=== PATIENT | male | born 1945 | race Caucasian/White ===

== ENCOUNTER 2017-02-07 11:38 | Emergency (ER) | payer MEDICAID, OTHER ==
[~2017-02-07] VITALS: Wt 55.0 kg
[~2017-02-07 11:38] MED LIST: FOLI-49 PO; METF500T PO; Multivitamins/Minerals PO; Thiamine Hcl PO
[2017-02-07] MEDS ORDERED: SOD CHLORIDE 0.9% 1,000 ML IV STA (13:20)
[2017-02-07] MEDS ORDERED: MUPIROCIN 2% 22 GM OINT TOP ONE (13:30)
[2017-02-07] MEDS ORDERED: IBUPROFEN 600 MG TAB PO ONE (13:30)
[2017-02-07 13:41] LABS: ADD SCAN DIFF NO
[2017-02-07 13:42] LABS: BASOPHIL # 0.1 10^3/ul (0.0-0.1); BASOPHILS % 0.6 % (0.0-2.0); EOSINOPHILS # 0.1 10^3/ul (0.0-0.5); HEMATOCRIT 39.9 % (42.0-52.0); HEMOGLOBIN 13.6 g/dl (14.0-18.0); LYMPHOCYTES # 1.4 10^3/ul (0.8-2.9); LYMPHOCYTES % 17.2 % (15.0-51.0); MEAN CORPUSCULAR HEMOGLOBIN 29.9 pg (29.0-33.0); MEAN CORPUSCULAR HGB CONC 34.1 g/dl (32.0-37.0); MEAN CORPUSCULAR VOLUME 87.7 fl (82.0-101.0); MEAN PLATELET VOLUME 8.5 fl (7.4-10.4); MONOCYTE # 1.1 10^3/ul (0.3-0.9); MONOCYTES % 13.1 % (0.0-11.0); NEUTROPHIL # 5.4 10^3/ul (1.6-7.5); NEUTROPHILS % 65.7 % (39.0-77.0); PLATELET COUNT 347 10^3/UL (140-415); RED BLOOD COUNT 4.55 10^6/ul (4.70-6.10); RED CELL DISTRIBUTION WIDTH 14.3 % (11.5-14.5); WHITE BLOOD COUNT 8.3 10^3/ul (4.8-10.8)
--- NOTE | 2017-02-07 14:00 | RADRPT ---
PROCEDURE: CT Abdomen and Pelvis without contrast. CLINICAL INDICATION: Abdominal pain TECHNIQUE: CT scan of the abdomen and pelvis without contrast was performed on a multidetector hig h-resolution CT scanner. The patient was scanned without intravenous contrast. Coronal and sagittal reformatted images were obtained from the axial source images. Images were reviewed on a high-resol [employer] PACS workstation. The total exam CTDI equals 6.42 mGy and the total exam DLP equals 362.22 mGy -cm. One or more of the following dose reduction techniques were used: Automated exposure control. Adjustment of the mA and/or kV according to patient size. Use of iterative reconstruction technique. COMPARISON: None FINDINGS: CT abdomen: There are mildly displaced posterolateral rib fractures of the right tenth, eleventh and twelfth rib s. The lung bases are remarkable for 7 mm irregularly marginated nodule in the posterior right lung base. There is a smaller ovoid shaped nodule in the lateral right lung base. The heart size is nor mal, without pericardial thickening or effusion. There is hepatomegaly with fatty infiltration. The spleen is normal in size and homogeneous in densi ty. The stomach is partially collapsed, but is grossly unremarkable. The pancreas as visualized is normal. The gallbladder is remarkable for sub centimeter calcified gallstones. There is no evidenc e for biliary dilatation. The adrenal glands are symmetric and normal. The kidneys are symmetrical ly unremarkable as well. No renal calculus or obstructive uropathy or mass lesion is seen. There is approximately 2 cm cyst in the upper pole right kidney. The aorta is of normal caliber. Aortic vascular calcifications are present. There is no retroperit batres lymphadenopathy. The isai hepatis region is clear. There is diverticulosis of the descendin g and sigmoid colon without evidence of acute diverticulitis. CT pelvis: The small bowel loops situated within the pelvis are unremarkable. Small layering stones are seen in the urinary bladder. There is mild prostatomegaly. There is a normal appendix. The pelvic organs a re normal. The pelvic sidewalls and inguinal regions are clear. The sigmoid colon and rectum are r emarkable for sigmoid diverticulosis. No mass, lymphadenopathy, or free fluid is seen. No acute in flammation is seen. The surrounding osseous structures are remarkable for degenerative spondylosis of the spine. No osteolytic or osteoblastic lesion is detected. IMPRESSION: 1. Mildly displaced right posterolateral rib fractures of the tenth, eleventh and twelfth ribs. No pneumothorax. No pleural effusions. 2. No traumatic abnormality in the abdomen and pelvis. 3. Cholelithiasis without evidence of acute cholecystitis. 4. Colonic diverticulosis more evident in the sigmoid without evidence of acute diverticulitis. 5. Hepatomegaly with fatty infiltration. 6. Small stones/debris in the urinary bladder. 6. Small pulmonary nodules in the right lung base which could represent focal scarring given the mo rphology of the nodular densities. Consider follow-up CT in 6-12 months to ensure stability. RPTAT: BB .Minh Thorpe MD, MD Date Time Electronically viewed and signed by .Minh Thorpe MD, on 02/07/2017 13:59 .O/
[2017-02-07 14:05] LABS: ALBUMIN 4.9 g/dl (3.3-4.9); ALBUMIN/GLOBULIN RATIO 1.36; CALCIUM 9.7 mg/dl (8.4-10.2); CREATININE 1.56 mg/dl (0.61-1.24); POTASSIUM 4.6 mmol/L (3.5-5.1); TOTAL PROTEIN 8.5 g/dl (6.1-8.1)
--- NOTE | 2017-02-07 14:11 | RADRPT ---
PROCEDURE: Chest x-ray CLINICAL INDICATION: Abdominal pain TECHNIQUE: Chest single view COMPARISON: 07/22/2013 FINDINGS: The heart is normal in size. The pulmonary vessels are normal in caliber. The lungs are clear. Th e costophrenic angles are sharp. The visualized bony thorax is unremarkable. IMPRESSION: No acute cardiopulmonary disease. RPTAT: HH .Yeyo Otero MD, Date Time Electronically viewed and signed by .Yeyo Otero MD, on 02/07/2017 14:10 .W/
[2017-02-07] MEDS ORDERED: MUPI22OI2 TOP (14:25)
[2017-02-07] MEDS ORDERED: CEPH-443 PO (14:25)
[2017-02-07] MEDS ORDERED: OXYC-279 PO (14:25)
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
== END 2017-02-07 18:04 | disposition home or self-care (01) ==
LOC: E/R 11:38
DX: S30.810A Abrasion of lower back and pelvis, initial encounter (principal); S30.0XXA Contusion of lower back and pelvis, initial encounter; S22.41XA Multiple fractures of ribs, right side, initial encounter for closed fracture; I10 Essential (primary) hypertension; E11.9 Type 2 diabetes mellitus without complications; Y08.89XA Assault by other specified means, initial encounter; Z79.84 Long term (current) use of oral hypoglycemic drugs
CPT/HCPCS: 71010; 74176; 80053; 83690; 85025; J7030; Z7502; Z7610

== ENCOUNTER 2017-02-27 16:04 | Inpatient (IN) | payer OTHER ==
[~2017-02-27] VITALS: Ht 165.1 cm; Wt 59.2 kg
[~2017-02-27 16:04] MED LIST changes: +CEPH-443 PO; -FOLI-49 PO; -METF500T PO; +MUPI22OI2 TOP; -Multivitamins/Minerals PO; +OXYC-279 PO; -Thiamine Hcl PO
--- NOTE | 2017-02-27 16:39 | RADRPT ---
PROCEDURE: XR Chest. CLINICAL INDICATION: chest pain TECHNIQUE: Single frontal view of the chest was obtained COMPARISON: 02/07/2017 FINDINGS: The heart and mediastinum are within normal limits. There is a 1.3 cm nodular opacity overlying the right lower lobe, suspicious for nipple shadow howev er, the nodule is not excluded.. The lungs are otherwise clear. There is no pleural effusion or pneumothorax. There are multiple healed right-sided rib fractures. RPTAT: AA IMPRESSION: Nodular opacity right lower lobe likely represents a nipple shadow. However a nodule is not exclude d and further evaluation with a repeat x-ray with nipple markers recommended. .Juan Quintana MD, MD Date Time Electronically viewed and signed by .Juan Quintana MD, on 02/27/2017 16:39 .S/
[2017-02-27 16:41] LABS: ADD SCAN DIFF NO
[2017-02-27 16:47] LABS: ADD UMIC YES; UR ASCORBIC ACID NEGATIVE (NEGATIVE); UR BILIRUBIN (Dip) NEGATIVE (NEGATIVE); UR BLOOD (Dip) 1+ mg/dL (NEGATIVE); UR CLARITY CLEAR (CLEAR); UR COLOR YELLOW (YELLOW); UR GLUCOSE (Dip) 3+ mg/dL (NEGATIVE); UR KETONES (Dip) NEGATIVE (NEGATIVE); UR LEUKOCYTE ESTERASE (Dip) NEGATIVE Leu/ul (NEGATIVE); UR NITRITE (Dip) NEGATIVE (NEGATIVE); UR RBC 1 /HPF (0-5); UR SPECIFIC GRAVITY (Dip) 1.025 (1.003-1.030); UR TOTAL PROTEIN (Dip) 2+ mg/dl (NEGATIVE); UR UROBILINOGEN (Dip) NEGATIVE (NEGATIVE)
[2017-02-27] MEDS ORDERED: SOD CHLORIDE 0.9% 1,000 ML IV STA ×2 (16:47→17:38)
[2017-02-27 16:53] LABS: BASOPHIL # 0.1 10^3/ul (0.0-0.1); EOSINOPHILS # 0.1 10^3/ul (0.0-0.5); EOSINOPHILS % 1.4 % (0.0-7.0); HEMATOCRIT 36.8 % (42.0-52.0); HEMOGLOBIN 12.4 g/dl (14.0-18.0); LYMPHOCYTES # 1.5 10^3/ul (0.8-2.9); LYMPHOCYTES % 30.9 % (15.0-51.0); MEAN CORPUSCULAR HEMOGLOBIN 29.4 pg (29.0-33.0); MEAN CORPUSCULAR HGB CONC 33.7 g/dl (32.0-37.0); MEAN CORPUSCULAR VOLUME 87.2 fl (82.0-101.0); MEAN PLATELET VOLUME 8.6 fl (7.4-10.4); MONOCYTE # 0.8 10^3/ul (0.3-0.9); MONOCYTES % 15.6 % (0.0-11.0); NEUTROPHIL # 2.4 10^3/ul (1.6-7.5); NEUTROPHILS % 48.7 % (39.0-77.0); PLATELET COUNT 339 10^3/UL (140-415); RED BLOOD COUNT 4.22 10^6/ul (4.70-6.10); RED CELL DISTRIBUTION WIDTH 14.7 % (11.5-14.5)
[2017-02-27 17:00] LABS: INR 0.99; PARTIAL THROMBOPLASTIN TIME 24.1 Sec (25.0-35.0); PROTIME 13.1 Sec (12.2-14.2)
[2017-02-27] MEDS ORDERED: ACETAMINOPHEN 500 MG TAB PO STA (17:18)
[2017-02-27 17:20] LABS: ALANINE AMINOTRANSFERASE 42 IU/L (13-69); ALBUMIN 4.3 g/dl (3.3-4.9); ALBUMIN/GLOBULIN RATIO 1.22; ALKALINE PHOSPHATASE 129 IU/L (42-121); ANION GAP 22 (8-16); ASPARTATE AMINO TRANSFERASE 42 IU/L (15-46); BILIRUBIN,INDIRECT 0.1 mg/dl (0-1.1); BILIRUBIN,TOTAL 0.1 mg/dl (0.2-1.3); BLOOD UREA NITROGEN 12 mg/dl (7-20); CARBON DIOXIDE 15 mmol/L (21-31); CHLORIDE 101 mmol/L (97-110); CREATININE 1.07 mg/dl (0.61-1.24); POTASSIUM 3.8 mmol/L (3.5-5.1); SODIUM 134 mmol/L (135-144); TOTAL PROTEIN 7.8 g/dl (6.1-8.1)
[2017-02-27 17:33] LABS: GLUCOSE 439 mg/dl (70-220)
[2017-02-27] MEDS ORDERED: INSULIN LISPRO 100 UNIT/ML VIAL SC STA (17:33)
[2017-02-27 17:35] LABS: TROPONIN-I < 0.012 ng/ml (0.00-0.12)
[2017-02-27] MEDS ORDERED: GLUCOSE GEL 15 GRAM TUBE PO PRN ×2 (18:00)
[2017-02-27] MEDS ORDERED: DEXTROSE 50% 50 ML SYRINGE IV PRN ×2 (18:00)
[2017-02-27] MEDS ORDERED: GLUCAGON 1 MG INJ IM PRN (18:00)
[2017-02-27] MEDS ORDERED: GLUCOSE GEL 15 GRAM TUBE BUCCAL PRN (18:00)
--- NOTE | 2017-02-27 19:32 | RADRPT ---
PROCEDURE: CT Abdomen and Pelvis without contrast. CLINICAL INDICATION: Right-sided abdominal pain TECHNIQUE: CT scan of the abdomen and pelvis without contrast was performed on a multidetector hig h-resolution CT scanner. The patient was scanned without intravenous contrast. Coronal and sagittal reformatted images were obtained from the axial source images. Images were reviewed on a high-resol [employer] PACS workstation. The total exam CTDI equals 6.78 mGy and the total exam DLP equals 368.02 mGy -cm. One or more the following dose reduction techniques were utilized: Automated exposure control, adjus tment of the mA and / or kV according to patient's size, or use of iterative reconstruction techniqu e. COMPARISON: 02/07/2017 FINDINGS: Multiple right lower lobe lung nodular densities are seen increased in size and number compared to t he previous study the largest approximately 3 x 1.5 cm and 2.9 x 1.1 cm. These could be inflammator y or neoplastic. Hepatic steatosis again seen. Cholelithiasis again seen. No biliary dilatation is seen. No abnormality is seen in the spleen. The upper stomach is not distended. Nonspecific diffu se pancreatic ductal dilatation is again seen greatest in the head of the pancreas were diameter equ als 6 mm not significantly changed compared to previous study. No abnormality is seen in the adrena ls. No abnormality seen in the left kidney. There is an approximate 1.6 cm fluid density structure likely a cyst in the upper to mid right kidney again seen. Calcification in thoracoabdominal aorta , right renal, superior mesenteric and bilateral iliac arteries. No abdominal aortic aneurysm is se en. Very small umbilical hernia containing fat only. Likely small calculi linearly distributed in the posterior right bladder and previously in the posterior left bladder. No renal or ureteral stone is seen. Mild enlargement of prostate with impression on posterior inferior bladder again seen. Di verticula, sigmoid, transverse and ascending colon and cecum. No specific evidence of acute diverti culitis seen. There is an unremarkable appendix. No dilated small bowel loops are seen. No enlarge d lymph nodes are seen in the abdomen or pelvis. No ascites is seen. Mild osteoarthrosis at hips. Mild degenerative changes at sacroiliac joints. Thoracolumbar spondylosis. IMPRESSION: Multiple right lower lobe lung nodular densities are seen increased in size and number compared to t he previous study the largest approximately 3 x 1.5 cm and 2.9 x 1.1 cm. These could be inflammator y or neoplastic. Hepatic steatosis again seen. Cholelithiasis again seen. Nonspecific diffuse panc reatic ductal dilatation is again seen greatest in the head of the pancreas were diameter equals 6 m m not significantly changed compared to previous study. Atherosclerosis. Likely small bladder calc jc again seen. Mild enlargement of prostate again seen. Colonic diverticulosis. No specific evide nce of acute diverticulitis seen. Please see above. RPTAT: HJES .Taye Fuentes MD, MD Date Time Electronically viewed and signed by .Taye Fuentes MD, MD on 02/27/2017 19:32 .S/
[2017-02-27] MEDS ORDERED: SOD CHLORIDE 0.9% 1,000 ML IV SCH (19:43)
--- NOTE | 2017-02-27 19:48 | ERA ---
ER Documentation Chief Complaint Date/Time DATE: 02/27/17 TIME: 19:45 Chief Complaint BIBA FOR CP RADIATING TO LEFT SHOULDER AND NECK,SOB HPI This is a 71-year-old male who presents to the emergency room for evaluation of chest pain, abdominal pain, mild shortness of breath. The patient states his symptoms have been present for 2 days duration. He describes his chest pain as a sharp pain localized in the center of his chest with no radiation. He states his abdominal pain is an achy pain in the right lower portion of his abdomen with no radiation. He came to the ER today for evaluation. ROS All systems reviewed and are negative except as per history of present illness. Medications Home Meds Discontinued Scripts Oxycodone HCl/Acetaminophen (Percocet 5-325 mg Tablet) 1 Each Tablet, 1 EACH PO TID for PAIN, #12 TAB Prov:RITIKA SENIOR MD 02/07/17 Cephalexin* (Keflex*) 500 Mg Capsule, 500 MG PO QID for 5 Days, CAP Prov:RITIKA SENIOR MD 02/07/17 Mupirocin* (Bactroban*) 2% -22 Gram Oint...g., 1 APPLIC TOP BID for 7 Days, EA Prov:RITIKA SENIOR MD 02/07/17 Allergies Allergies: Coded Allergies: No Known Drug Allergy (Verified Allergy, Mild, 02/27/17) PMhx/Soc History of Surgery: No (not stated) Anesthesia Reaction: No Hx Neurological Disorder: No Hx Respiratory Disorders: No Hx Cardiac Disorders: Yes (HTN,) Hx Psychiatric Problems: No Hx Miscellaneous Medical Probl: Yes (ETOH abuse, DM, HTN, HLD) Hx Alcohol Use: Yes Hx Substance Use: No Hx Tobacco Use: No Smoking Status: Former smoker Physical Exam Vitals Vital Signs Date Time Temp Pulse Resp B/P Pulse Ox O2 Delivery O2 Flow Rate FiO2 02/27/17 19:23 85 166/83 99 Room Air 02/27/17 17:02 95 18 144/82 98 02/27/17 16:10 98.3 107 18 151/93 98 Physical Exam INITIAL VITAL SIGNS: Reviewed by me GENERAL: The patient is well developed and appropriate for usual state of health in no apparent distress HEENT: Pupils equal, round, and reactive to light. EOMI. There is no scleral icterus. NECK: C-spine is soft and supple, there is no meningismus. There is no cervical lymphadenopathy. LUNGS: Clear to auscultation bilaterally. There are no rales, wheezes or rhonchi. HEART: Regular rate and rhythm, no murmurs, clicks, rubs or gallops. ABDOMEN: Tender to palpation in right lower quadrant there are bowel sounds in all four quadrants. No rebound or guarding. EXTREMITIES: There is no peripheral cyanosis or edema. No focal swelling or erythema. NEUROLOGICAL: The patient moves all four extremities with 5/5 strength. Cranial nerves II - XII are intact. Normal gait. Alert and oriented SKIN: There is no apparent rash or petechiae. HEME/LYMPHATIC: There is no evidence of excessive bruising or lymphedema. PSYCHIATRIC: The patient does not appear anxious or depressed. Result Diagram: 02/27/17 1620 02/27/17 1620 Results 24 hrs Laboratory Tests Test 02/27/17 16:20 02/27/17 18:00 02/27/17 19:20 White Blood Count 5.010^3/ul Red Blood Count 4.2210^6/ul Hemoglobin 12.4g/dl Hematocrit 36.8% Mean Corpuscular Volume 87.2fl Mean Corpuscular Hemoglobin 29.4pg Mean Corpuscular Hemoglobin Concent 33.7g/dl Red Cell Distribution Width 14.7% Platelet Count 49761^3/UL Mean Platelet Volume 8.6fl Neutrophils % 48.7% Lymphocytes % 30.9% Monocytes % 15.6% Eosinophils % 1.4% Basophils % 1.0% Nucleated Red Blood Cells % 0.0/100WBC Neutrophils # 2.410^3/ul Lymphocytes # 1.510^3/ul Monocytes # 0.810^3/ul Eosinophils # 0.110^3/ul Basophils # 0.110^3/ul Nucleated Red Blood Cells # 0.010^3/ul Prothrombin Time 13.1Sec Prothrombin Time Ratio 1.0 INR International Normalized Ratio 0.99 Activated Partial Thromboplast Time 24.1Sec Urine Color YELLOW Urine Clarity CLEAR Urine pH 5.0 Urine Specific [place] 1.025 Urine Ketones NEGATIVEmg/dL Urine Nitrite NEGATIVEmg/dL Urine Bilirubin NEGATIVEmg/dL Urine Urobilinogen NEGATIVEmg/dL Urine Leukocyte Esterase NEGATIVELeu/ul Urine Microscopic RBC 1/HPF Urine Microscopic WBC 1/HPF Urine Hemoglobin 1+mg/dL Urine Glucose 3+mg/dL Urine Total Protein 2+mg/dl Sodium Level 134mmol/L Potassium Level 3.8mmol/L Chloride Level 101mmol/L Carbon Dioxide Level 15mmol/L Anion Gap 22 Blood Urea Nitrogen 12mg/dl Creatinine 1.07mg/dl Glucose Level 439mg/dl Lactic Acid Level 4.2mmol/L 3.5mmol/L Calcium Level 9.0mg/dl Total Bilirubin 0.1mg/dl Direct Bilirubin 0.00mg/dl Indirect Bilirubin 0.1mg/dl Aspartate Amino Transf (AST/SGOT) 42IU/L Alanine Aminotransferase (ALT/SGPT) 42IU/L Alkaline Phosphatase 129IU/L Troponin I < 0.012ng/ml Total Protein 7.8g/dl Albumin 4.3g/dl Globulin 3.50g/dl Albumin/Globulin Ratio 1.22 Bedside Glucose 187mg/dL Current Medications Medications (Trade) Dose Ordered Sig/Elier Route PRN Reason Start Time Stop Time Status Last Admin Dose Admin Sodium Chloride (NS) 1,000 ml @ 1,000 mls/hr Q1H STAT IV 02/27/17 16:47 02/27/17 17:46 DC 02/27/17 16:55 Acetaminophen (Tylenol Tab) 1,000 mg ONCE STAT PO 02/27/17 17:18 02/27/17 17:19 DC 02/27/17 18:05 Insulin Human Lispro 15 unit 15 unit ONCE STAT SC 02/27/17 17:33 02/27/17 17:44 DC 02/27/17 18:05 Sodium Chloride (NS) 1,000 ml @ 1,000 mls/hr Q1H STAT IV 02/27/17 17:38 02/27/17 18:37 DC 02/27/17 18:05 Miscellaneous Information 1 ea NOTE XX 02/27/17 18:00 Glucose (Glutose) 15 gm Q15M PRN PO DECREASED GLUCOSE 02/27/17 18:00 Glucose (Glutose) 22.5 gm Q15M PRN PO DECREASED GLUCOSE 02/27/17 18:00 Dextrose (D50w Syringe) 25 ml Q15M PRN IV DECREASED GLUCOSE 02/27/17 18:00 Dextrose (D50w Syringe) 50 ml Q15M PRN IV DECREASED GLUCOSE 02/27/17 18:00 Glucagon (Glucagen) 1 mg Q15M PRN IM DECREASED GLUCOSE 02/27/17 18:00 Glucose 15 gm 15 gm Q15M PRN BUCCAL DECREASED GLUCOSE 02/27/17 18:00 Sodium Chloride (NS) 1,000 ml @ 80 mls/hr [id number] IV 02/27/17 19:43 02/28/17 08:12 Ondansetron HCl (Zofran Inj) 4 mg ER BRIDGE PRN IV NAUSEA AND/OR VOMITING 02/27/17 20:00 02/28/17 19:59 Acetaminophen (Tylenol Tab) 650 mg ER BRIDGE PRN PO MILD PAIN/FEVER 02/27/17 20:00 02/28/17 19:59 Procedures/MDM EKG: Rate/Rhythm: [Normal Sinus Rhythm] QRS, ST, T-waves: [No changes consistent w/ acute ischemia] Impression: [No evidence of ischemia or arrhythmia] Chest X-ray 1V Interpreted by me: Soft Tissue: Lung nodule Bones: No acute abnormalities Mediastinum/Cardiac Silhouette/Lungs: [No acute abnormalities] CT abdomen pelvis without :Multiple right lower lobe lung nodular densities are seen increased in size and number compared to the previous study the largest approximately 3 x 1.5 cm and 2.9 x 1.1 cm. These could be inflammatory or neoplastic. Hepatic steatosis again seen. Cholelithiasis again seen. Nonspecific diffuse pancreatic ductal dilatation is again seen greatest in the head of the pancreas were diameter equals 6 mm not significantly changed compared to previous study. Atherosclerosis. Likely small bladder calculi again seen. Mild enlargement of prostate again seen. Colonic diverticulosis. No specific evidence of acute diverticulitis seen. This 71-year-old male presents to the ER for evaluation of chest pain and mild shortness of breath. When I evaluated this patient he was mildly tachycardic and did have a disheveled appearance. Lab work was obtained on this patient which did show an elevated lactic acid greater than 4, and a blood sugar of greater than 400. This patient has no ketones in the urine, I doubt DKA at this time. The patient was given 2 L of IV fluid. He was given 12 units of subcutaneous insulin. His patient's lactic acid is trending down. His sugar now is 189. He is in no acute distress. He is alert and oriented to person place and time. Given his age, uncontrolled hyperglycemia, elevated lactic acid he will be placed in for admission at this time under the care of Dr. Antonio. He will be placed on the telemetry floor. Departure Diagnosis: Primary Impression: Chest pain Additional Impressions: Uncontrolled diabetes mellitus Lactic acidosis Condition: Stable MARÍA ELENA COTTRELL DO Feb 27, 2017 19:48
[2017-02-27] MEDS ORDERED: ONDANSETRON 4 MG INJ IV PRN (20:00)
[2017-02-27] MEDS ORDERED: ACETAMINOPHEN 325 MG TAB PO PRN (20:00)
[2017-02-27 21:11] VITALS: PULSE 95
[2017-02-27 21:40] VITALS: BP 167/77; RESP 19
[2017-02-27] MEDS: SOD CHLORIDE 0.9% 1,000 ML IV SCH (22:30)
[2017-02-27 22:42] VITALS: Ht 165.1 cm; Wt 59.2 kg
[2017-02-27] MEDS: ACETAMINOPHEN 325 MG TAB PO PRN (23:27)
[2017-02-27] MEDS: METOPROLOL 25 MG TAB PO SCH (23:28)
[2017-02-27] MEDS: CHLORDIAZEPOXIDE 25 MG CAP PO SCH (23:28)
[2017-02-27 23:49] VITALS: BP 166/73; RESP 18
[2017-02-28] VITALS (11 sets, daily range): BP systolic 133–159; BP diastolic 71–74; PULSE 73–91; RESP 16–20
[2017-02-28] MEDS: MULTIVITAMINS 10 ML, THIAMINE 100 MG, FOLIC ACID 1 MG in SOD CHLORIDE 0.9% 1,000 ML IVPB SCH ×2 (00:07→08:18)
[2017-02-28] MEDS: ACCU-CHEK XX SCH (01:57)
[2017-02-28] MEDS: ACETAMINOPHEN 325 MG TAB PO PRN ×3 (05:49→20:32)
[2017-02-28] MEDS ORDERED: PANTOPRAZOLE (EC) 40 MG TAB PO SCH (06:00)
[2017-02-28] MEDS: ASPIRIN 81 MG TAB PO SCH ×2 (06:20→08:20)
[2017-02-28 06:34] LABS: ADD SCAN DIFF NO
[2017-02-28 06:40] LABS: BASOPHIL # 0.1 10^3/ul (0.0-0.1); BASOPHILS % 0.7 % (0.0-2.0); EOSINOPHILS # 0.1 10^3/ul (0.0-0.5); HEMATOCRIT 35.6 % (42.0-52.0); HEMOGLOBIN 11.9 g/dl (14.0-18.0); LYMPHOCYTES # 1.1 10^3/ul (0.8-2.9); LYMPHOCYTES % 16.2 % (15.0-51.0); MEAN CORPUSCULAR HEMOGLOBIN 29.8 pg (29.0-33.0); MEAN CORPUSCULAR HGB CONC 33.4 g/dl (32.0-37.0); MEAN PLATELET VOLUME 8.6 fl (7.4-10.4); MONOCYTE # 0.9 10^3/ul (0.3-0.9); MONOCYTES % 13.1 % (0.0-11.0); NEUTROPHIL # 4.5 10^3/ul (1.6-7.5); NEUTROPHILS % 67.1 % (39.0-77.0); PLATELET COUNT 302 10^3/UL (140-415); RED CELL DISTRIBUTION WIDTH 14.6 % (11.5-14.5); WHITE BLOOD COUNT 6.8 10^3/ul (4.8-10.8)
[2017-02-28 07:18] LABS: TROPONIN-I 0.014 ng/ml (0.00-0.12)
[2017-02-28 07:19] LABS: ALBUMIN 3.5 g/dl (3.3-4.9); BILIRUBIN,INDIRECT 0.7 mg/dl (0-1.1); BILIRUBIN,TOTAL 0.7 mg/dl (0.2-1.3); CALCIUM 7.6 mg/dl (8.4-10.2); CREATININE 0.78 mg/dl (0.61-1.24); MAGNESIUM 1.2 mg/dl (1.7-2.5); POTASSIUM 3.8 mmol/L (3.5-5.1); TOTAL PROTEIN 6.5 g/dl (6.1-8.1)
[2017-02-28] MEDS: CHLORDIAZEPOXIDE 25 MG CAP PO SCH ×3 (08:20→20:20)
[2017-02-28] MEDS: METOPROLOL 25 MG TAB PO SCH ×2 (08:20→20:20)
[2017-02-28] MEDS: INSULIN ASPART [NOVOLOG] 3 ML PEN SC SCH ×6 (08:24→20:31)
[2017-02-28] MEDS: SOD CHLORIDE 0.9% 1,000 ML IV SCH ×2 (11:00→22:43)
--- NOTE | 2017-02-28 11:22 | HP ---
Date/Time of Note Date/Time of Note DATE: 02/28/17 TIME: 10:51 Assessment/Plan VTE Prophylaxis VTE Prophylaxis Intervention: SCD's Lines/Catheters IV Catheter Type (from Nrsg): Peripheral IV Assessment/Plan Assessment/Plan 71-year-old male: 1. Abdominal pain, atypical chest pain, pleuritic in nature likely rate related to his heavy alcoholism and possibly underlying esophagitis, cardiac enzymes negative 3, CAT scan of the abdomen with dilated pancreatic duct, rule out pancreatitis workup pending with lipase and amylase pending, if needed MRCP to be done. Patient also found to have pulmonary masses, given his complaints of pleuritic chest pain, CT angiogram of the chest pending EKG within normal 2D echo as needed Clear liquids 2. Diabetes mellitus, uncontrolled, hemoglobin A1c of 9.7 and noncompliance with diet and medications. Diabetic education pending, he will be started on Lantus 12 units qhs along with the short acting insulin q. before meals and sliding scale 3. Peripheral neuropathy: Likely related to heavy alcoholism, liver disease, diabetes, minimally symptomatic for now, will start neuropathy if needed. 4. Heavy alcoholism with signs of mild withdrawal, last beer was yesterday, increase Librium to 25 mg p.o. 3 times daily, Ativan as needed, banana bag daily. Patient has been counseled to stop drinking, since there is a history of homelessness is [facility], professor of social work will be consulted 5. Hypertension: Also noncompliant, start metoprolol 25 mg p.o. twice daily 6. Hyponatremia, mild likely secondary to hypovolemia, also sodium correcting to 135 today given hyperglycemia 7. Hepatic steatosis, likely related to alcoholic liver disease, patient has been again advised to stop drinking. Prophylaxis: SCDs to lower extremity for DVT prophylaxis, Protonix for GI prophylaxis Disposition: Evaluate for pancreatitis, monitor for alcohol withdrawal, further care depending on the results of newly ordered studies HPI/ROS Admit Date/Time Admit Date/Time Feb 27, 2017 at 19:43 Hx of Present Illness Chief complaint on admission: Abdominal and chest pain History of presenting illness: This is a 71-year-old male with history of insulin requiring diabetes mellitus, heavy alcohol use, peripheral neuropathy and hypertension, noncompliant with medication due to heavy alcoholism mainly and previously homeless, who presented with complaint of stabbing chest pain and abdominal pain. Patient reports that he has been having these symptoms for approximately the past 10 days, he was seen in the emergency department 10 days ago but due to insurance verification issues from what he is reporting he was not seen, apparently a different name was given at that time. He has been homeless but was able to be put into housing over the past year for what he is reporting. However he is a heavy alcoholic he drinks at least 6 beers a day and multiple shots of vodka. He has been alcoholic for at least 30 years now. He reports again over the past 10 days stabbing pain epigastric and in his back , stabbing pain in his chest he seems to be pointing the left side, he does report episodes of heavy alcohol use and being drunk, he lost all his medications recently and is noncompliant with any of them. In the emergency department he had a CAT scan of the abdomen and pelvis which also shows some nodular masses in his chest, CAT scan of the chest is pending. Lipase and amylase have been ordered this morning for rule out of pancreatitis. He denies any shortness of breath, dizziness, pressure-like chest pain. Cardiac enzymes were negative in the emergency department. He reports that his last beer was yesterday. This morning he does have tremors, he has been started on Librium which frequency will be increased. He is already on a banana bag. He is having cardiac workup also done but his symptoms are very atypical likely related to heavy alcohol use and possibly pancreatitis. CAT scan of the abdomen and pelvis does show hepatic steatosis, cholelithiasis and dilated pancreatic duct in the head of the pancreas, it seems to be chronic , MRCP will be checked as needed pending lipase and amylase ROS Eyes: no complaints Cardiovascular: other (Stabbing left sided chest discomfort) Gastrointestinal: other (Epigastric abdominal pain radiating to the back) Genitourinary: no complaints Musculoskeletal: no complaints Neurologic: other (Neuropathy) PMH/Family/Social Past Medical History Heavy alcoholism Peripheral neuropathy Medical History: diabetes (Insulin requiring), hypertension Past Surgical History Past Surgical Hx: no surgical history Family History Significant Family History: no pertinent family hx Social History Alcohol Use: heavy (6 beers a day, vodka daily for the past 30 years at least) Smoking Status: Former smoker Drug Use: none Exam/Review of Systems Vital Signs Vitals Vital Signs Date Time Temp Pulse Resp B/P Pulse Ox O2 Delivery O2 Flow Rate FiO2 02/28/17 08:33 73 02/28/17 07:48 98.0 18 159/72 99 02/27/17 20:49 Room Air Intake and Output 02/27/17 02/27/17 02/28/17 15:00 23:00 07:00 Intake Total 1230 ml Output Total 650 ml Balance 580 ml Exam Constitutional: alert, oriented, well developed Respiratory: clear to auscultation, normal air movement Cardiovascular: nl pulses, regular rate and rhythm Gastrointestinal: other (Epigastric tenderness, radiating to the back), soft Musculoskeletal: nl extremities to inspection Extremities: normal pulses, other (No edema, clubbing, cyanosis) Neurological: [employer]QU[employer]MENT [employer]OVER II-XII intact, nl mental status, nl speech, other ( Generalized weakness, peripheral neuropathy) Labs Result Diagram: 02/28/17 0620 02/28/17 06 Medications Medications Home Meds: Unknown Current Medications Miscellaneous Information 1 ea NOTE XX ; Start 02/27/17 at 18:00 Glucose (Glutose) 15 gm Q15M PRN PO DECREASED GLUCOSE; Start 02/27/17 at 18:00 Glucose (Glutose) 22.5 gm Q15M PRN PO DECREASED GLUCOSE; Start 02/27/17 at 18: 00 Dextrose (D50w Syringe) 25 ml Q15M PRN IV DECREASED GLUCOSE; Start 02/27/17 at 18:00 Dextrose (D50w Syringe) 50 ml Q15M PRN IV DECREASED GLUCOSE; Start 02/27/17 at 18:00 Glucagon (Glucagen) 1 mg Q15M PRN IM DECREASED GLUCOSE; Start 02/27/17 at 18:00 Glucose (Glutose) 15 gm Q15M PRN BUCCAL DECREASED GLUCOSE; Start 02/27/17 at 18 :00 Pantoprazole (Protonix Tab) 40 mg DAILY@06 PO Last administered on 02/28/17 05 :49; Admin Dose 40 MG; Start 02/28/17 at 06:00 Diagnostic Test (Pha) (Accu-Chek) 1 ea 02 XX Last administered on 02/28/17 01: 57; Admin Dose 1 EA; Start 02/28/17 at 02:00 Metoprolol Tartrate (Lopressor) 25 mg BID PO Last administered on 02/28/17 08: 20; Admin Dose 25 MG; Start 02/27/17 at 22:30 Acetaminophen 650 mg 650 mg Q4H PRN PO PAIN AND OR ELEVATED TEMP Last administered on 02/28/17 05:49; Admin Dose 650 MG; Start 02/27/17 at 22:30 Multivitamins 10 ml/Thiamine HCl 100 mg/Folic Acid 1 mg/Sodium Chloride 1,011.2 ml @ 125 mls/ hr DAILY@09 IVPB Last administered on 02/28/17 08:18; Admin Dose 125 MLS/HR; Start 02/27/17 at 22:30 Sodium Chloride (NS) 1,000 ml @ 80 mls/hr [id number] IV ; Start 02/27/17 at 22:30 Aspirin (Aspirin) 81 mg DAILY PO Last administered on 02/28/17 08:20; Admin Dose 81 MG; Start 02/28/17 at 06:15 Chlordiazepoxide (Librium) 25 mg TID PO ; Start 02/28/17 at 13:00; Status UNV Insulin Glargine (Lantus) 12 unit DAILY@20 SC ; Start 02/28/17 at 20:00; Status UNV Miscellaneous Information (* Miscellaneous Pharmacy Order) HYPOGLYCEMIA PROTOCOL w... ONCE ONCE XX ; Start 02/28/17 at 11:00; Stop 02/28/17 at 11:01; Status UNV Miscellaneous Information (* Miscellaneous Pharmacy Order) Discontinue Glyburide , Glipizide,... ONCE ONCE XX ; Start 02/28/17 at 11:00; Stop 02/28/17 at 11:01 ; Status UNV Procedures Procedures PROCEDURE: CT Abdomen and Pelvis without contrast. CLINICAL INDICATION: Right-sided abdominal pain TECHNIQUE: CT scan of the abdomen and pelvis without contrast was performed on a multidetector high-resolution CT scanner. The patient was scanned without intravenous contrast. Coronal and sagittal reformatted images were obtained from the axial source images. Images were reviewed on a high-resolution PACS workstation. The total exam CTDI equals 6.78 mGy and the total exam DLP equals 368.02 mGy-cm. One or more the following dose reduction techniques were utilized: Automated exposure control, adjustment of the mA and / or kV according to patient's size, or use of iterative reconstruction technique. COMPARISON: 02/07/2017 FINDINGS: Multiple right lower lobe lung nodular densities are seen increased in size and number compared to the previous study the largest approximately 3 x 1.5 cm and 2.9 x 1.1 cm. These could be inflammatory or neoplastic. Hepatic steatosis again seen. Cholelithiasis again seen. No biliary dilatation is seen. No abnormality is seen in the spleen. The upper stomach is not distended. Nonspecific diffuse pancreatic ductal dilatation is again seen greatest in the head of the pancreas were diameter equals 6 mm not significantly changed compared to previous study. No abnormality is seen in the adrenals. No abnormality seen in the left kidney. There is an approximate 1.6 cm fluid density structure likely a cyst in the upper to mid right kidney again seen. Calcification in thoracoabdominal aorta, right renal, superior mesenteric and bilateral iliac arteries. No abdominal aortic aneurysm is seen. Very small umbilical hernia containing fat only. Likely small calculi linearly distributed in the posterior right bladder and previously in the posterior left bladder. No renal or ureteral stone is seen. Mild enlargement of prostate with impression on posterior inferior bladder again seen. Diverticula, sigmoid, transverse and ascending colon and cecum. No specific evidence of acute diverticulitis seen. There is an unremarkable appendix. No dilated small bowel loops are seen. No enlarged lymph nodes are seen in the abdomen or pelvis. No ascites is seen. Mild osteoarthrosis at hips. Mild degenerative changes at sacroiliac joints. Thoracolumbar spondylosis. IMPRESSION: Multiple right lower lobe lung nodular densities are seen increased in size and number compared to the previous study the largest approximately 3 x 1.5 cm and 2.9 x 1.1 cm. These could be inflammatory or neoplastic. Hepatic steatosis again seen. Cholelithiasis again seen. Nonspecific diffuse pancreatic ductal dilatation is again seen greatest in the head of the pancreas were diameter equals 6 mm not significantly changed compared to previous study. Atherosclerosis. Likely small bladder calculi again seen. Mild enlargement of prostate again seen. Colonic diverticulosis. No specific evidence of acute diverticulitis seen. Please see above. PROCEDURE: XR Chest. CLINICAL INDICATION: chest pain TECHNIQUE: Single frontal view of the chest was obtained COMPARISON: 02/07/2017 FINDINGS: The heart and mediastinum are within normal limits. There is a 1.3 cm nodular opacity overlying the right lower lobe, suspicious for nipple shadow however, the nodule is not excluded.. The lungs are otherwise clear. There is no pleural effusion or pneumothorax. There are multiple healed right-sided rib fractures. RPTAT: AA IMPRESSION: Nodular opacity right lower lobe likely represents a nipple shadow. However a nodule is not excluded and further evaluation with a repeat x-ray with nipple markers recommended. SHINE LYNNE Feb 28, 2017 11:04
[2017-02-28] MEDS ORDERED: LORAZEPAM 2 MG INJ IM PRN (13:00)
[2017-02-28 13:03] LABS: AMYLASE 51 U/L (11-123)
[2017-02-28] MEDS ORDERED: SOD CHLORIDE 0.9% 100 ML ONE (14:06)
[2017-02-28] MEDS ORDERED: IOHEXOL 100 ML ONE (14:06)
--- NOTE | 2017-02-28 14:47 | RADRPT ---
PROCEDURE: CTA Chest with IV contrast. CLINICAL INDICATION: Chest pain and shortness of breath. TECHNIQUE: The study was performed utilizing a multidetector CT scanner. Direct spiral axial secti ons were obtained from the thoracic inlet through the upper abdomen before and after the injection o f 100 cc Omnipaque through fifth intravenous contrast material and reformatted at 1.25 mm. 3D, coron al and sagittal reformations were obtained. The images were reviewed on a PACS workstation. Automate d exposure control was utilized. DLP = 373.4 mGy-cm.CTDiVol = 7.0, 42.3, 8.8 mGy. One or more of the following post reduction techniques were used: - Automated exposure control. - Adjustment of the mA and/or Kv according to patient's size. - Use of iterative reconstruction technique COMPARISON: CT abdomen February 07, 2017 FINDINGS: No pulmonary arterial filling defects to indicate pulmonary embolus are identified. Heart size is within normal limits. Coronary artery calcifications are observed. Multiple visible, but not enlarged by size criteria, right hilar, subcarinal, paratracheal and prevascular space lymp h nodes are identified. No hilar or mediastinal lymphadenopathy by size criteria is observed. A fe w small calcified granulomas are noted in the mediastinum. The visualized portions of the inferior t hyroid appear unremarkable. Mild calcified atherosclerosis is seen scattered in the thoracic aorta. The thoracic esophagus appears normal. Dependent, subsegmental atelectasis is noted in both lungs. Patchy, slightly nodular appearing cons olidation is identified in the posterior and lateral right lower lobe. Calcified granuloma is noted in the posterior right lower lobe. Diffuse fatty infiltration of the liver is observed. A few calcified gallstones are seen in the gall bladder. 2.1 cm cyst is noted in the superior pole of the right kidney. Moderate degenerative changes are identified in the spine. Mildly displaced, fractures of the poste rior lateral right 10th through 12th ribs are observed. The subcutaneous and muscular soft tissues surrounding the chest are unremarkable. IMPRESSION: No visualized pulmonary embolus. Patchy, slightly nodular appearing consolidation in the posterior and lateral right lower lobe. This patchy consolidation is new since prior exam and likely reflects infectious/inflammatory infiltrate s. The small lung nodules in the right lower lobe, seen on prior CT abdomen, are not distinctly vis ualized against this background of patchy consolidation. Mildly displaced fractures of the posterior lateral right 10th through 12th ribs. Calcified granulomatous disease in the right lung and mediastinum. Diffuse fatty infiltration of the liver. Cholelithiasis. Degenerative changes in the spine and calcified atherosclerosis in the arterial vasculature. RPTAT: AA .Hesham Keita MD, Date Time Electronically viewed and signed by .Hesham Keita MD, on 02/28/2017 14:47 .P/
[2017-02-28] MEDS: PANTOPRAZOLE (EC) 40 MG TAB PO SCH (17:29)
[2017-02-28] MEDS: INSULIN GLARGINE [LANtus] 3 ML PEN SC SCH (20:31)
[2017-03-01] VITALS (11 sets, daily range): BP systolic 142–182; BP diastolic 63–81; PULSE 65–82; RESP 16–20
[2017-03-01] MEDS: ACCU-CHEK XX SCH (02:41)
[2017-03-01] MEDS: PANTOPRAZOLE (EC) 40 MG TAB PO SCH ×2 (05:42→18:00)
[2017-03-01 06:56] LABS: ADD SCAN DIFF NO
[2017-03-01 07:02] LABS: BASOPHILS % 0.5 % (0.0-2.0); EOSINOPHILS # 0.1 10^3/ul (0.0-0.5); EOSINOPHILS % 2.4 % (0.0-7.0); HEMATOCRIT 36.8 % (42.0-52.0); HEMOGLOBIN 12.2 g/dl (14.0-18.0); LYMPHOCYTES % 17.5 % (15.0-51.0); MEAN CORPUSCULAR HEMOGLOBIN 29.7 pg (29.0-33.0); MEAN CORPUSCULAR HGB CONC 33.2 g/dl (32.0-37.0); MEAN CORPUSCULAR VOLUME 89.5 fl (82.0-101.0); MEAN PLATELET VOLUME 8.5 fl (7.4-10.4); MONOCYTE # 0.7 10^3/ul (0.3-0.9); MONOCYTES % 11.8 % (0.0-11.0); NEUTROPHIL # 3.9 10^3/ul (1.6-7.5); NEUTROPHILS % 66.4 % (39.0-77.0); PLATELET COUNT 289 10^3/UL (140-415); RED BLOOD COUNT 4.11 10^6/ul (4.70-6.10); RED CELL DISTRIBUTION WIDTH 14.6 % (11.5-14.5); WHITE BLOOD COUNT 5.9 10^3/ul (4.8-10.8)
[2017-03-01 07:21] LABS: INR 1.01; MAGNESIUM 1.2 mg/dl (1.7-2.5); PHOSPHORUS 2.5 mg/dl (2.5-4.9); PROTIME 13.3 Sec (12.2-14.2)
[2017-03-01 07:22] LABS: PARTIAL THROMBOPLASTIN TIME 24.7 Sec (25.0-35.0)
[2017-03-01 07:28] LABS: ALBUMIN 3.3 g/dl (3.3-4.9); ALBUMIN/GLOBULIN RATIO 1.06; BILIRUBIN,INDIRECT 0.4 mg/dl (0-1.1); BILIRUBIN,TOTAL 0.4 mg/dl (0.2-1.3); CALCIUM 8.5 mg/dl (8.4-10.2); CREATININE 0.87 mg/dl (0.61-1.24); POTASSIUM 3.1 mmol/L (3.5-5.1); TOTAL PROTEIN 6.4 g/dl (6.1-8.1)
[2017-03-01] MEDS: INSULIN ASPART [NOVOLOG] 3 ML PEN SC SCH ×7 (08:13→20:48)
[2017-03-01] MEDS: CHLORDIAZEPOXIDE 25 MG CAP PO SCH ×3 (08:44→20:34)
[2017-03-01] MEDS: MULTIVITAMINS 10 ML, THIAMINE 100 MG, FOLIC ACID 1 MG in SOD CHLORIDE 0.9% 1,000 ML IVPB SCH (08:44)
[2017-03-01] MEDS: METOPROLOL 25 MG TAB PO SCH ×2 (08:45→20:35)
[2017-03-01] MEDS: ASPIRIN 81 MG TAB PO SCH (08:47)
[2017-03-01] MEDS ORDERED: POTASSIUM CHLORIDE (SR) 20 MEQ TAB PO STA (09:40)
--- NOTE | 2017-03-01 09:58 | PN ---
Date/Time of Note Date/Time of Note DATE: 03/01/17 TIME: 09:39 Assessment/Plan VTE Prophylaxis VTE Prophylaxis Intervention: SCD's Lines/Catheters IV Catheter Type (from Nrs): Peripheral IV Urinary Cath still in place: No Assessment/Plan Assessment/Plan 71-year-old male: 1. Abdominal pain, atypical chest pain, pleuritic in nature likely rate related to his heavy alcoholism and possibly underlying esophagitis, cardiac enzymes negative 3, CAT scan of the abdomen with dilated pancreatic duct, rule out pancreatitis workup pending with lipase and amylase pending, Will do MRCP today to complete work up based on CT findings CT angiogram of the chest showing, ? right PNA ? EKG within normal Tolerating diet, PPI and d/c ASA 2. Diabetes mellitus, uncontrolled, hemoglobin A1c of 9.7 and noncompliance with diet and medications. Diabetic education pending, Continue Lantus 12 units qhs along with the short acting insulin q. before meals and sliding scale 3. Peripheral neuropathy: Likely related to heavy alcoholism, liver disease, diabetes, minimally symptomatic for now, will start neuropathy if needed. 4. Heavy alcoholism with signs of mild withdrawal, last beer was yesterday, increase Librium to 25 mg p.o. tid, Ativan as needed, change to Thiamine/Folate/ MVI po daily. Patient has been counseled to stop drinking, since there is a history of homelessness is currently living at either [facility], psychotherapist social worker consulted 5. Hypertension: Also noncompliant, continue Metoprolol 25 mg p.o. twice daily 6. Hyponatremia, mild likely secondary to hypovolemia, sodium back to normal. 7. Hepatic steatosis, likely related to alcoholic liver disease, patient has been again advised to stop drinking. Prophylaxis: SCDs to lower extremity for DVT prophylaxis, Protonix for GI prophylaxis Disposition: MRCP pending, monitor for alcohol withdrawal. Subjective 24 Hr Interval Summary Free Text/Dictation Patient doing oK Less tremors and repleting electrolytes Epigastric/esophageal pain likely from esophagitis/gastritis and possibly PUD Exam/Review of Systems Vital Signs Vitals Vital Signs Date Time Temp Pulse Resp B/P Pulse Ox O2 Delivery O2 Flow Rate FiO2 03/01/17 08:22 73 03/01/17 07:19 98.1 16 156/75 97 02/27/17 20:49 Room Air Intake and Output 02/28/17 02/28/17 03/01/17 15:00 23:00 07:00 Intake Total 1761 ml 1600 ml Output Total 800 ml 1400 ml Balance 961 ml 200 ml Exam Constitutional: alert, oriented, well developed Respiratory: clear to auscultation, normal air movement Cardiovascular: nl pulses, regular rate and rhythm Gastrointestinal: non-tender, soft Musculoskeletal: nl extremities to inspection Extremities: normal pulses, other (unsteady gait ) Neurological: R D INTERNSHIP II-XII intact, nl mental status, nl speech Results Result Diagram: 03/01/17 0642 03/01/17 0642 Results 24 hrs Laboratory Tests Test 02/28/17 10:35 02/28/17 11:40 02/28/17 17:22 02/28/17 20:22 Lactic Acid Level 2.3 H Amylase Level 51 Lipase 65 Bedside Glucose 265 H 185 241 H Test 03/01/17 02:38 03/01/17 06:42 03/01/17 08:10 Bedside Glucose 228 H 196 White Blood Count 5.9 Red Blood Count 4.11 L Hemoglobin 12.2 L Hematocrit 36.8 L Mean Corpuscular Volume 89.5 Mean Corpuscular Hemoglobin 29.7 Mean Corpuscular Hemoglobin Concent 33.2 Red Cell Distribution Width 14.6 H Platelet Count 289 Mean Platelet Volume 8.5 Neutrophils % 66.4 Lymphocytes % 17.5 Monocytes % 11.8 H Eosinophils % 2.4 Basophils % 0.5 Nucleated Red Blood Cells % 0.0 Neutrophils # 3.9 Lymphocytes # 1.0 Monocytes # 0.7 Eosinophils # 0.1 Basophils # 0.0 Nucleated Red Blood Cells # 0.0 Prothrombin Time 13.3 Prothrombin Time Ratio 1.0 INR International Normalized Ratio 1.01 Activated Partial Thromboplast Time 24.7 L Sodium Level 129 L Potassium Level 3.1 L Chloride Level 102 Carbon Dioxide Level 25 Anion Gap 5 L Blood Urea Nitrogen 11 Creatinine 0.87 Glucose Level 179 Calcium Level 8.5 Phosphorus Level 2.5 Magnesium Level 1.2 L Total Bilirubin 0.4 Direct Bilirubin 0.00 Indirect Bilirubin 0.4 Aspartate Amino Transf (AST/SGOT) 31 Alanine Aminotransferase (ALT/SGPT) 35 Alkaline Phosphatase 99 Ammonia < 0 L Total Protein 6.4 Albumin 3.3 Globulin 3.10 Albumin/Globulin Ratio 1.06 Amylase Level 61 Lipase 126 Medications Medications Current Medications Miscellaneous Information 1 ea NOTE XX ; Start 02/27/17 at 18:00 Glucose (Glutose) 15 gm Q15M PRN PO DECREASED GLUCOSE; Start 02/27/17 at 18:00 Glucose (Glutose) 22.5 gm Q15M PRN PO DECREASED GLUCOSE; Start 02/27/17 at 18: 00 Dextrose (D50w Syringe) 25 ml Q15M PRN IV DECREASED GLUCOSE; Start 02/27/17 at 18:00 Dextrose (D50w Syringe) 50 ml Q15M PRN IV DECREASED GLUCOSE; Start 02/27/17 at 18:00 Glucagon (Glucagen) 1 mg Q15M PRN IM DECREASED GLUCOSE; Start 02/27/17 at 18:00 Glucose (Glutose) 15 gm Q15M PRN BUCCAL DECREASED GLUCOSE; Start 02/27/17 at 18 :00 Diagnostic Test (Pha) (Accu-Chek) 1 ea 02 XX Last administered on 03/01/17 02: 41; Admin Dose 1 EA; Start 02/28/17 at 02:00 Metoprolol Tartrate (Lopressor) 25 mg BID PO Last administered on 03/01/17 08: 45; Admin Dose 25 MG; Start 02/27/17 at 22:30 Acetaminophen 650 mg 650 mg Q4H PRN PO PAIN AND OR ELEVATED TEMP Last administered on 02/28/17 20:32; Admin Dose 650 MG; Start 02/27/17 at 22:30 Multivitamins 10 ml/Thiamine HCl 100 mg/Folic Acid 1 mg/Sodium Chloride 1,011.2 ml @ 125 mls/ hr DAILY@09 IVPB Last administered on 03/01/17 08:44; Admin Dose 125 MLS/HR; Start 02/27/17 at 22:30 Sodium Chloride (NS) 1,000 ml @ 80 mls/hr [id number] IV Last administered on 02/28 22:43; Admin Dose 80 MLS/HR; Start 02/27/17 at 22:30 Aspirin (Aspirin) 81 mg DAILY PO Last administered on 03/01/17 08:47; Admin Dose 81 MG; Start 02/28/17 at 06:15 Chlordiazepoxide (Librium) 25 mg TID PO Last administered on 03/01/17 08:44; Admin Dose 25 MG; Start 02/28/17 at 13:00 Insulin Glargine (Lantus) 12 unit DAILY@20 SC Last administered on 02/28/17 20 :31; Admin Dose 12 UNIT; Start 02/28/17 at 20:00 Pantoprazole (Protonix Tab) 40 mg BID@06,18 PO Last administered on 03/01/17 05:42; Admin Dose 40 MG; Start 02/28/17 at 18:00 Lorazepam (Ativan) 1 mg Q6H PRN IM AGITATION/ANXIETY; Start 02/28/17 at 13:00 Procedures Procedures PROCEDURE: CTA Chest with IV contrast. CLINICAL INDICATION: Chest pain and shortness of breath. TECHNIQUE: The study was performed utilizing a multidetector CT scanner. Direct spiral axial sections were obtained from the thoracic inlet through the upper abdomen before and after the injection of 100 cc Omnipaque through fifth intravenous contrast material and reformatted at 1.25 mm. 3D, coronal and sagittal reformations were obtained. The images were reviewed on a PACS workstation. Automated exposure control was utilized. DLP = 373.4 mGy- cm.CTDiVol = 7.0, 42.3, 8.8 mGy. One or more of the following post reduction techniques were used: - Automated exposure control. - Adjustment of the mA and/or Kv according to patient's size. - Use of iterative reconstruction technique COMPARISON: CT abdomen February 07, 2017 FINDINGS: No pulmonary arterial filling defects to indicate pulmonary embolus are identified. Heart size is within normal limits. Coronary artery calcifications are observed. Multiple visible, but not enlarged by size criteria, right hilar, subcarinal, paratracheal and prevascular space lymph nodes are identified. No hilar or mediastinal lymphadenopathy by size criteria is observed. A few small calcified granulomas are noted in the mediastinum. The visualized portions of the inferior thyroid appear unremarkable. Mild calcified atherosclerosis is seen scattered in the thoracic aorta. The thoracic esophagus appears normal. Dependent, subsegmental atelectasis is noted in both lungs. Patchy, slightly nodular appearing consolidation is identified in the posterior and lateral right lower lobe. Calcified granuloma is noted in the posterior right lower lobe. Diffuse fatty infiltration of the liver is observed. A few calcified gallstones are seen in the gallbladder. 2.1 cm cyst is noted in the superior pole of the right kidney. Moderate degenerative changes are identified in the spine. Mildly displaced, fractures of the posterior lateral right 10th through 12th ribs are observed. The subcutaneous and muscular soft tissues surrounding the chest are unremarkable. IMPRESSION: No visualized pulmonary embolus. Patchy, slightly nodular appearing consolidation in the posterior and lateral right lower lobe. This patchy consolidation is new since prior exam and likely reflects infectious/inflammatory infiltrates. The small lung nodules in the right lower lobe, seen on prior CT abdomen, are not distinctly visualized against this background of patchy consolidation. Mildly displaced fractures of the posterior lateral right 10th through 12th ribs. Calcified granulomatous disease in the right lung and mediastinum. Diffuse fatty infiltration of the liver. Cholelithiasis. Degenerative changes in the spine and calcified atherosclerosis in the arterial vasculature. RPTAT: AA .Hesham Keita MD, MD Date Time Electronically viewed and signed by .Hehsam Keita MD, on 02/28/2017 14:47 SHINE LYNNE Mar 01, 2017 09:49
[2017-03-01] MEDS: LEVOFLOXACIN 750 MG TABLET PO SCH (10:56)
[2017-03-01] MEDS: POTASSIUM CHLORIDE 40 MEQ in SOD CHLORIDE 0.9% 980 ML IV SCH ×2 (10:56→20:38)
[2017-03-01] MEDS ORDERED: MAGNESIUM SULFATE 4 GM/100 ML 100 ML IVPB ONE (11:00)
[2017-03-01] MEDS: ACETAMINOPHEN 325 MG TAB PO PRN ×2 (11:56→20:38)
[2017-03-01] MEDS: LOSARTAN 50 MG TAB PO SCH ×2 (11:57→20:35)
[2017-03-01] MEDS ORDERED: hydrALAzine 20 MG INJ IV PRN (12:00)
[2017-03-01] MEDS ORDERED: LORAZEPAM 2 MG INJ IV PRN (13:00)
[2017-03-01] MEDS: INSULIN GLARGINE [LANtus] 3 ML PEN SC SCH (20:48)
[2017-03-02] VITALS (12 sets, daily range): BP systolic 114–172; BP diastolic 60–88; PULSE 65–78; RESP 16–20
[2017-03-02] MEDS: ACCU-CHEK XX SCH (01:28)
[2017-03-02] MEDS: PANTOPRAZOLE (EC) 40 MG TAB PO SCH ×2 (05:31→17:19)
[2017-03-02] MEDS: POTASSIUM CHLORIDE 40 MEQ in SOD CHLORIDE 0.9% 980 ML IV SCH ×2 (05:32→07:00)
[2017-03-02 07:57] LABS: ADD SCAN DIFF NO
[2017-03-02 08:00] LABS: BASOPHILS % 0.5 % (0.0-2.0); EOSINOPHILS # 0.1 10^3/ul (0.0-0.5); EOSINOPHILS % 1.6 % (0.0-7.0); HEMATOCRIT 35.5 % (42.0-52.0); HEMOGLOBIN 11.7 g/dl (14.0-18.0); LYMPHOCYTES # 0.8 10^3/ul (0.8-2.9); LYMPHOCYTES % 13.3 % (15.0-51.0); MEAN CORPUSCULAR HEMOGLOBIN 30.1 pg (29.0-33.0); MEAN CORPUSCULAR VOLUME 91.3 fl (82.0-101.0); MEAN PLATELET VOLUME 8.9 fl (7.4-10.4); MONOCYTE # 0.8 10^3/ul (0.3-0.9); MONOCYTES % 13.3 % (0.0-11.0); NEUTROPHILS % 69.7 % (39.0-77.0); PLATELET COUNT 277 10^3/UL (140-415); RED BLOOD COUNT 3.89 10^6/ul (4.70-6.10); RED CELL DISTRIBUTION WIDTH 14.9 % (11.5-14.5); WHITE BLOOD COUNT 5.8 10^3/ul (4.8-10.8)
[2017-03-02] MEDS: ACETAMINOPHEN 325 MG TAB PO PRN ×2 (08:14→18:33)
[2017-03-02] MEDS: LOSARTAN 50 MG TAB PO SCH ×2 (08:15→21:17)
[2017-03-02] MEDS: FOLIC ACID 1 MG TAB PO SCH (08:15)
[2017-03-02] MEDS: METOPROLOL 25 MG TAB PO SCH ×2 (08:15→21:17)
[2017-03-02] MEDS: CHLORDIAZEPOXIDE 25 MG CAP PO SCH ×3 (08:15→21:17)
[2017-03-02] MEDS: LEVOFLOXACIN 750 MG TABLET PO SCH (08:16)
[2017-03-02] MEDS: MULTIVITAMINS THERAPEUTIC TAB PO SCH (08:16)
[2017-03-02] MEDS: THIAMINE 100 MG TAB PO SCH (08:16)
[2017-03-02] MEDS: INSULIN ASPART [NOVOLOG] 3 ML PEN SC SCH ×7 (08:18→21:00)
[2017-03-02 08:37] LABS: MAGNESIUM 1.5 mg/dl (1.7-2.5); PHOSPHORUS 2.4 mg/dl (2.5-4.9)
[2017-03-02 08:41] LABS: ALBUMIN 3.2 g/dl (3.3-4.9); ALBUMIN/GLOBULIN RATIO 1.1; BILIRUBIN,INDIRECT 0.1 mg/dl (0-1.1); BILIRUBIN,TOTAL 0.1 mg/dl (0.2-1.3); CALCIUM 8.1 mg/dl (8.4-10.2); CREATININE 1.03 mg/dl (0.61-1.24); POTASSIUM 3.9 mmol/L (3.5-5.1); TOTAL PROTEIN 6.1 g/dl (6.1-8.1)
--- NOTE | 2017-03-02 11:16 | PN ---
Date/Time of Note Date/Time of Note DATE: 03/02/17 TIME: 11:00 Assessment/Plan VTE Prophylaxis VTE Prophylaxis Intervention: SCD's Lines/Catheters IV Catheter Type (from Nrs): Peripheral IV Urinary Cath still in place: No Assessment/Plan Assessment/Plan 71-year-old male: 1. Abdominal pain, atypical chest pain, pleuritic in nature likely rate related to his heavy alcoholism and possibly underlying esophagitis, cardiac enzymes negative 3, CAT scan of the abdomen with dilated pancreatic duct, lipase and amylase wnl MRCP still pending for the past 24 hrs, delaying d/c planning CT angiogram of the chest showing, ? right PNA ? on Levaquin now EKG within normal Tolerating diet, PPI. 2. Diabetes mellitus, uncontrolled, hemoglobin A1c of 9.7 and noncompliance with diet and medications. Diabetic education. Increase Lantus to 15 units qhs along with the short acting insulin q. before meals and sliding scale 3. Peripheral neuropathy: Likely related to heavy alcoholism, liver disease, diabetes, minimally symptomatic for now, will start neuropathy if needed. 4. Heavy alcoholism with signs of mild withdrawal, last beer was yesterday, increase Librium to 25 mg p.o. tid, Ativan as needed, on Thiamine/Folate/MVI po daily. Patient has been counseled to stop drinking, since there is a history of homelessness is currently living at either [facility], social work manager to see. 5. Hypertension: Continue Metoprolol 25 mg p.o. twice bebo, along with Cozaar and prn hydralazine 6. Hyponatremia, mild likely secondary to hypovolemia, sodium back to normal. 7. Hepatic steatosis, likely related to alcoholic liver disease, patient has been again advised to stop drinking. 8. Right sided Pneumonia on CT chest, ? aspiration while intoxicated. Continue Levaquin. Prophylaxis: SCDs to lower extremity for DVT prophylaxis, Protonix for GI prophylaxis Disposition: MRCP pending, BP control and will need placement. Subjective 24 Hr Interval Summary Free Text/Dictation Patient reports that he is feeling better, he is tolerating p.o., was still waiting on MRI of his abdomen as he is having occasional abdominal pain. Electrolytes much improved. Blood sugar improved Physical therapy ordered No signs of withdrawal currently much improved Exam/Review of Systems Vital Signs Vitals Vital Signs Date Time Temp Pulse Resp B/P Pulse Ox O2 Delivery O2 Flow Rate FiO2 03/02/17 08:01 67 03/02/17 07:54 98.5 20 172/79 100 02/27/17 20:49 Room Air Intake and Output 03/01/17 03/01/17 03/02/17 15:00 23:00 07:00 Intake Total 550 ml 700 ml Output Total 1100 ml 1200 ml Balance -550 ml -500 ml Exam Constitutional: alert, oriented, well developed Respiratory: clear to auscultation, normal air movement Cardiovascular: nl pulses, regular rate and rhythm Gastrointestinal: soft, tender (Mild tenderness to palpation right and left upper) Musculoskeletal: nl extremities to inspection Extremities: normal pulses, other (No edema, clubbing or cyanosis) Neurological: PATHOLOGY SUPERVISOR II-XII intact, nl mental status, nl speech, other ( Generalized weakness) Results Result Diagram: 03/02/1770203/02/17 0703 Results 24 hrs Laboratory Tests Test 03/01/17 11:54 03/01/17 17:58 03/01/17 20:43 03/02/17 01:21 Bedside Glucose 245 H 206 278 H 297 H Test 03/02/17 07:03 03/02/17 08:00 White Blood Count 5.8 Red Blood Count 3.89 L Hemoglobin 11.7 L Hematocrit 35.5 L Mean Corpuscular Volume 91.3 Mean Corpuscular Hemoglobin 30.1 Mean Corpuscular Hemoglobin Concent 33.0 Red Cell Distribution Width 14.9 H Platelet Count 277 Mean Platelet Volume 8.9 Neutrophils % 69.7 Lymphocytes % 13.3 L Monocytes % 13.3 H Eosinophils % 1.6 Basophils % 0.5 Nucleated Red Blood Cells % 0.0 Neutrophils # 4.0 Lymphocytes # 0.8 Monocytes # 0.8 Eosinophils # 0.1 Basophils # 0.0 Nucleated Red Blood Cells # 0.0 Sodium Level 130 L Potassium Level 3.9 Chloride Level 102 Carbon Dioxide Level 25 Anion Gap 7 L Blood Urea Nitrogen 10 Creatinine 1.03 Glucose Level 247 H Calcium Level 8.1 L Phosphorus Level 2.4 L Magnesium Level 1.5 L Total Bilirubin 0.1 L Direct Bilirubin 0.00 Indirect Bilirubin 0.1 Aspartate Amino Transf (AST/SGOT) 26 Alanine Aminotransferase (ALT/SGPT) 33 Alkaline Phosphatase 125 H Total Protein 6.1 Albumin 3.2 L Globulin 2.90 Albumin/Globulin Ratio 1.10 Bedside Glucose 281 H Medications Medications Current Medications Miscellaneous Information 1 ea NOTE XX ; Start 02/27/17 at 18:00 Glucose (Glutose) 15 gm Q15M PRN PO DECREASED GLUCOSE; Start 02/27/17 at 18:00 Glucose (Glutose) 22.5 gm Q15M PRN PO DECREASED GLUCOSE; Start 02/27/17 at 18: 00 Dextrose (D50w Syringe) 25 ml Q15M PRN IV DECREASED GLUCOSE; Start 02/27/17 at 18:00 Dextrose (D50w Syringe) 50 ml Q15M PRN IV DECREASED GLUCOSE; Start 02/27/17 at 18:00 Glucagon (Glucagen) 1 mg Q15M PRN IM DECREASED GLUCOSE; Start 02/27/17 at 18:00 Glucose (Glutose) 15 gm Q15M PRN BUCCAL DECREASED GLUCOSE; Start 02/27/17 at 18 :00 Diagnostic Test (Pha) (Accu-Chek) 1 ea 02 XX Last administered on 03/02/17 01: 28; Admin Dose 1 EA; Start 02/28/17 at 02:00 Metoprolol Tartrate (Lopressor) 25 mg BID PO Last administered on 03/02/17 08: 15; Admin Dose 25 MG; Start 02/27/17 at 22:30 Acetaminophen (Tylenol Tab) 650 mg Q4H PRN PO PAIN AND OR ELEVATED TEMP Last administered on 03/02/17 08:14; Admin Dose 650 MG; Start 02/27/17 at 22:30 Chlordiazepoxide (Librium) 25 mg TID PO Last administered on 03/02/17 08:15; Admin Dose 25 MG; Start 02/28/17 at 13:00 Pantoprazole (Protonix Tab) 40 mg BID@06,18 PO Last administered on 03/02/17 05:31; Admin Dose 40 MG; Start 02/28/17 at 18:00 Levofloxacin (Levaquin) 750 mg DAILY PO Last administered on 03/02/17 08:16; Admin Dose 750 MG; Start 03/01/17 at 11:00 Thiamine HCl (Vitamin B1) 100 mg DAILY PO Last administered on 03/02/17 08:16 ; Admin Dose 100 MG; Start 03/02/17 at 09:00 Folic Acid (Folic Acid) 1 mg DAILY PO Last administered on 03/02/17 08:15; Admin Dose 1 MG; Start 03/02/17 at 09:00 Multivitamins Therapeutic (Theragran) 1 tab DAILY PO Last administered on 08:16; Admin Dose 1 TAB; Start 03/02/17 at 09:00 Lorazepam (Ativan) 1 mg Q6H PRN IV AGITATION/ANXIETY; Start 03/01/17 at 13:00 Losartan Potassium (Cozaar) 50 mg BID PO Last administered on 03/02/17 08:15; Admin Dose 50 MG; Start 03/01/17 at 12:00 Hydralazine HCl (Apresoline) 10 mg Q8H PRN IV ELEVATED BLOOD PRESSURE; Start at 12:00 Insulin Glargine 15 unit 15 unit DAILY@20 SC ; Start 03/02/17 at 20:00; Status UNV Magnesium Sulfate (Magnesium Sulfate 4 Gm/100 ml) 100 ml @ 25 mls/hr ONCE ONCE IVPB ; Start 03/02/17 at 11:00; Stop 03/02/17 at 14:59; Status UNV SHINE LYNNE Mar 02, 2017 11:14
[2017-03-02] MEDS ORDERED: MAGNESIUM SULFATE 4 GM/100 ML 100 ML IVPB ONE (12:00)
[2017-03-02] MEDS: INSULIN GLARGINE [LANtus] 3 ML PEN SC SCH (21:19)
[2017-03-03] MEDS: ACCU-CHEK XX SCH (02:00)
[2017-03-03 02:01] VITALS: BP 149/74; RESP 18
[2017-03-03 05:42] LABS: ADD SCAN DIFF NO
[2017-03-03 05:47] LABS: BASOPHILS % 0.7 % (0.0-2.0); EOSINOPHILS # 0.2 10^3/ul (0.0-0.5); HEMATOCRIT 34.9 % (42.0-52.0); HEMOGLOBIN 11.3 g/dl (14.0-18.0); LYMPHOCYTES # 1.1 10^3/ul (0.8-2.9); LYMPHOCYTES % 19.6 % (15.0-51.0); MEAN CORPUSCULAR HEMOGLOBIN 29.2 pg (29.0-33.0); MEAN CORPUSCULAR HGB CONC 32.4 g/dl (32.0-37.0); MEAN CORPUSCULAR VOLUME 90.2 fl (82.0-101.0); MEAN PLATELET VOLUME 9.1 fl (7.4-10.4); MONOCYTE # 0.8 10^3/ul (0.3-0.9); MONOCYTES % 13.8 % (0.0-11.0); NEUTROPHIL # 3.3 10^3/ul (1.6-7.5); NEUTROPHILS % 60.1 % (39.0-77.0); PLATELET COUNT 272 10^3/UL (140-415); RED BLOOD COUNT 3.87 10^6/ul (4.70-6.10); RED CELL DISTRIBUTION WIDTH 15.4 % (11.5-14.5); WHITE BLOOD COUNT 5.4 10^3/ul (4.8-10.8)
[2017-03-03] MEDS: PANTOPRAZOLE (EC) 40 MG TAB PO SCH ×2 (06:13→17:25)
[2017-03-03] MEDS: ACETAMINOPHEN 325 MG TAB PO PRN ×3 (06:15→22:53)
[2017-03-03 06:22] LABS: ALBUMIN 3.3 g/dl (3.3-4.9); ALBUMIN/GLOBULIN RATIO 1.13; CREATININE 1.12 mg/dl (0.61-1.24); POTASSIUM 3.8 mmol/L (3.5-5.1); TOTAL PROTEIN 6.2 g/dl (6.1-8.1)
[2017-03-03 07:02] LABS: MAGNESIUM 1.4 mg/dl (1.7-2.5); PHOSPHORUS 4.2 mg/dl (2.5-4.9)
[2017-03-03] MEDS: THIAMINE 100 MG TAB PO SCH (08:19)
[2017-03-03] MEDS: FOLIC ACID 1 MG TAB PO SCH (08:19)
[2017-03-03] MEDS: LEVOFLOXACIN 750 MG TABLET PO SCH (08:19)
[2017-03-03] MEDS: MULTIVITAMINS THERAPEUTIC TAB PO SCH (08:19)
[2017-03-03] MEDS: CHLORDIAZEPOXIDE 25 MG CAP PO SCH ×3 (08:19→20:09)
[2017-03-03] MEDS: INSULIN ASPART [NOVOLOG] 3 ML PEN SC SCH ×7 (08:21→20:14)
[2017-03-03] MEDS: METOPROLOL 25 MG TAB PO SCH ×2 (08:22→20:09)
[2017-03-03] MEDS: LOSARTAN 50 MG TAB PO SCH ×2 (08:23→20:09)
[2017-03-03 09:53] VITALS: BP 143/70; PULSE 80
--- NOTE | 2017-03-03 12:23 | PN ---
Date/Time of Note Date/Time of Note DATE: 03/03/17 TIME: 12:12 Assessment/Plan VTE Prophylaxis VTE Prophylaxis Intervention: SCD's Lines/Catheters IV Catheter Type (from Nrs): Peripheral IV Urinary Cath still in place: No Assessment/Plan Assessment/Plan 71-year-old male: 1. Abdominal pain, atypical chest pain, pleuritic in nature likely rate related to his heavy alcoholism and possibly underlying esophagitis, cardiac enzymes negative 3, CAT scan of the abdomen with dilated pancreatic duct, lipase and amylase wnl and LFTs have normalized now MRCP still pending for the past 48 hrs now, delaying d/c planning CT angiogram of the chest showing, ? right PNA ? continue Levaquin EKG within normal Tolerating diet, PPI. 2. Diabetes mellitus, uncontrolled, hemoglobin A1c of 9.7 and noncompliance with diet and medications. Diabetic education. Continue Lantus 15 units qhs along with the short acting insulin q. before meals and sliding scale 3. Peripheral neuropathy: Likely related to heavy alcoholism, liver disease, diabetes, minimally symptomatic for now, will start neuropathy if needed. 4. Heavy alcoholism with signs of mild withdrawal, last beer was yesterday, increase Librium to 25 mg p.o. tid, Ativan as needed, on Thiamine/Folate/MVI po daily. Patient has been counseled to stop drinking, since there is a history of homelessness is currently [facility] at [facility], manager social services to see. 5. Hypertension: Continue Metoprolol 25 mg p.o. twice daily, along with Cozaar and prn hydralazine 6. Hyponatremia, mild likely secondary to hypovolemia, sodium back to normal. 7. Hepatic steatosis, likely related to alcoholic liver disease, patient has been again advised to stop drinking. 8. Right sided Pneumonia on CT chest, ? aspiration while intoxicated. Continue Levaquin. Prophylaxis: SCDs to lower extremity for DVT prophylaxis, Protonix for GI prophylaxis Disposition: MRCP still pending, BP control and will need placement. Subjective 24 Hr Interval Summary Free Text/Dictation Patient doing well, currently n.p.o. awaiting for MRCP. He does complain of upper abdominal pain right and left has been going on since admission and LFTs now within normal. Electrolytes improved, liver function improved Tolerating p.o., no active withdrawal currently well controlled with Librium Exam/Review of Systems Vital Signs Vitals Vital Signs Date Time Temp Pulse Resp B/P Pulse Ox O2 Delivery O2 Flow Rate FiO2 03/03/17 09:53 80 143/70 03/03/17 02:01 98.1 18 99 02/27/17 20:49 Room Air Intake and Output 03/02/17 03/02/17 03/03/17 15:00 23:00 07:00 Intake Total 900 ml 375 ml Output Total 2000 ml 1350 ml Balance -1100 ml -975 ml Exam Constitutional: alert, oriented, well developed Respiratory: clear to auscultation, normal air movement Cardiovascular: nl pulses, regular rate and rhythm Gastrointestinal: soft, tender (Upper abdomen bilateral, mild) Musculoskeletal: nl extremities to inspection Extremities: normal pulses Neurological: CARD TENDER II-XII intact, nl mental status, nl speech, nl strength, other (Better balance) Results Result Diagram: 03/03/17 0505 03/03/17 0505 Results 24 hrs Laboratory Tests Test 03/02/17 12:13 03/02/17 17:26 03/02/17 21:14 03/03/17 05:05 Bedside Glucose 208 165 158 White Blood Count 5.4 Red Blood Count 3.87 L Hemoglobin 11.3 L Hematocrit 34.9 L Mean Corpuscular Volume 90.2 Mean Corpuscular Hemoglobin 29.2 Mean Corpuscular Hemoglobin Concent 32.4 Red Cell Distribution Width 15.4 H Platelet Count 272 Mean Platelet Volume 9.1 Neutrophils % 60.1 Lymphocytes % 19.6 Monocytes % 13.8 H Eosinophils % 3.0 Basophils % 0.7 Nucleated Red Blood Cells % 0.0 Neutrophils # 3.3 Lymphocytes # 1.1 Monocytes # 0.8 Eosinophils # 0.2 Basophils # 0.0 Nucleated Red Blood Cells # 0.0 Sodium Level 140 Potassium Level 3.8 Chloride Level 103 Carbon Dioxide Level 24 Anion Gap 17 #H Blood Urea Nitrogen 13 Creatinine 1.12 Glucose Level 195 Calcium Level 9.0 Total Bilirubin 0.0 L Direct Bilirubin 0.00 Indirect Bilirubin 0.0 Aspartate Amino Transf (AST/SGOT) 37 Alanine Aminotransferase (ALT/SGPT) 33 Alkaline Phosphatase 99 Total Protein 6.2 Albumin 3.3 Globulin 2.90 Albumin/Globulin Ratio 1.13 Test 03/03/17 05:08 03/03/17 08:03 Phosphorus Level 4.2 Magnesium Level 1.4 L Bedside Glucose 172 Medications Medications Current Medications Miscellaneous Information 1 ea NOTE XX ; Start 02/27/17 at 18:00 Glucose (Glutose) 15 gm Q15M PRN PO DECREASED GLUCOSE; Start 02/27/17 at 18:00 Glucose (Glutose) 22.5 gm Q15M PRN PO DECREASED GLUCOSE; Start 02/27/17 at 18: 00 Dextrose (D50w Syringe) 25 ml Q15M PRN IV DECREASED GLUCOSE; Start 02/27/17 at 18:00 Dextrose (D50w Syringe) 50 ml Q15M PRN IV DECREASED GLUCOSE; Start 02/27/17 at 18:00 Glucagon (Glucagen) 1 mg Q15M PRN IM DECREASED GLUCOSE; Start 02/27/17 at 18:00 Glucose (Glutose) 15 gm Q15M PRN BUCCAL DECREASED GLUCOSE; Start 02/27/17 at 18 :00 Diagnostic Test (Pha) (Accu-Chek) 1 ea 02 XX Last administered on 03/02/17 01: 28; Admin Dose 1 EA; Start 02/28/17 at 02:00 Metoprolol Tartrate (Lopressor) 25 mg BID PO Last administered on 03/03/17 08: 22; Admin Dose 25 MG; Start 02/27/17 at 22:30 Acetaminophen (Tylenol Tab) 650 mg Q4H PRN PO PAIN AND OR ELEVATED TEMP Last administered on 03/03/17 09:59; Admin Dose 650 MG; Start 02/27/17 at 22:30 Chlordiazepoxide (Librium) 25 mg TID PO Last administered on 03/03/17 08:19; Admin Dose 25 MG; Start 02/28/17 at 13:00 Pantoprazole (Protonix Tab) 40 mg BID@,18 PO Last administered on 03/03/17 06:13; Admin Dose 40 MG; Start 02/28/17 at 18:00 Levofloxacin (Levaquin) 750 mg DAILY PO Last administered on 03/03/17 08:19; Admin Dose 750 MG; Start 03/01/17 at 11:00 Thiamine HCl (Vitamin B1) 100 mg DAILY PO Last administered on 03/03/17 08:19 ; Admin Dose 100 MG; Start 03/02/17 at 09:00 Folic Acid (Folic Acid) 1 mg DAILY PO Last administered on 03/03/17 08:19; Admin Dose 1 MG; Start 03/02/17 at 09:00 Multivitamins Therapeutic (Theragran) 1 tab DAILY PO Last administered on 08:19; Admin Dose 1 TAB; Start 03/02/17 at 09:00 Lorazepam (Ativan) 1 mg Q6H PRN IV AGITATION/ANXIETY; Start 03/01/17 at 13:00 Losartan Potassium (Cozaar) 50 mg BID PO Last administered on 03/03/17 08:23; Admin Dose 50 MG; Start 03/01/17 at 12:00 Hydralazine HCl (Apresoline) 10 mg Q8H PRN IV ELEVATED BLOOD PRESSURE; Start at 12:00 Insulin Glargine (Lantus) 15 unit DAILY@20 SC Last administered on 03/02/17 21 :19; Admin Dose 15 UNIT; Start 03/02/17 at 20:00 SHINE LYNNE Mar 03, 2017 12:22
[2017-03-03] MEDS: GABAPENTIN 100 MG CAP PO SCH ×2 (12:36→20:08)
[2017-03-03] MEDS ORDERED: MAGNESIUM SULFATE 4 GM/100 ML 100 ML IVPB ONE (13:00)
--- NOTE | 2017-03-03 16:52 | RADRPT ---
PROCEDURE: MRCP. CLINICAL INDICATION: Elevated liver function tests. TECHNIQUE: MRCP was performed. The following sequences were obtained: Three plane gradient echo localizers, coronal gradient echo images, breath hold axial T2-weighted fat saturation images, cici nal T2-weighted images, axial 3-D LAVA images, axial T2-weighted breath hold fast spin echo images, and 3-D coronal rotating MIP images of the biliary tree. COMPARISON: CT scan of the abdomen and pelvis dated 02/27/2017 FINDINGS: The liver is normal in size. There is fatty metamorphosis of the liver.. There is no focal hepatic lesion. The spleen is normal in size and homogeneous in signal intensity. Multiple gallstones are present in the gallbladder. There is no evidence of cholecystitis. The bile ducts are normal with no dilatation or filling defect. The pancreatic duct is prominent by otherwise unremarkable. There is a benign cyst superiorly in the right kidney. The kidneys are otherwise unremarkable. The abdominal aorta is not dilated. There are ill-defined masses at the right lung base as seen on prio r CT scan. IMPRESSION: 1. Fatty metamorphosis of the liver. 2. Gallstones in the gallbladder. No evidence of cholecystitis. 3. Normal bile ducts. 4. Prominent pancreatic duct with no obstructing lesion. 5. Benign cyst superiorly in the right kidney. 6. Ill-defined masses at the right lung base. These were present on prior CT scan. 7. Otherwise unremarkable study. RPTAT: QQ .Pérez Birmingham MD, Date Time Electronically viewed and signed by .Pérez Birmingham MD, MD on 03/03/2017 16:52 .R/
[2017-03-03 20:13] VITALS: BP 151/80; RESP 18
[2017-03-03] MEDS: INSULIN GLARGINE [LANtus] 3 ML PEN SC SCH (20:14)
[2017-03-04] MEDS: ACCU-CHEK XX SCH (01:43)
[2017-03-04 02:21] VITALS: BP 100/60; RESP 16
[2017-03-04] MEDS: PANTOPRAZOLE (EC) 40 MG TAB PO SCH ×2 (05:04→17:44)
[2017-03-04 05:37] LABS: ADD SCAN DIFF NO
[2017-03-04 05:48] LABS: BASOPHILS % 0.7 % (0.0-2.0); EOSINOPHILS # 0.2 10^3/ul (0.0-0.5); HEMATOCRIT 37.2 % (42.0-52.0); HEMOGLOBIN 11.9 g/dl (14.0-18.0); LYMPHOCYTES # 1.4 10^3/ul (0.8-2.9); LYMPHOCYTES % 26.6 % (15.0-51.0); MEAN CORPUSCULAR HEMOGLOBIN 29.6 pg (29.0-33.0); MEAN CORPUSCULAR VOLUME 92.5 fl (82.0-101.0); MONOCYTE # 0.9 10^3/ul (0.3-0.9); NEUTROPHIL # 2.6 10^3/ul (1.6-7.5); NEUTROPHILS % 47.9 % (39.0-77.0); PLATELET COUNT 280 10^3/UL (140-415); RED BLOOD COUNT 4.02 10^6/ul (4.70-6.10); RED CELL DISTRIBUTION WIDTH 15.4 % (11.5-14.5); WHITE BLOOD COUNT 5.4 10^3/ul (4.8-10.8)
[2017-03-04 05:55] LABS: MONOCYTES % 17.2 % (0.0-11.0)
[2017-03-04 05:56] LABS: ALBUMIN 3.7 g/dl (3.3-4.9); ALBUMIN/GLOBULIN RATIO 1.19; CALCIUM 9.6 mg/dl (8.4-10.2); CREATININE 1.27 mg/dl (0.61-1.24); POTASSIUM 4.5 mmol/L (3.5-5.1); TOTAL PROTEIN 6.8 g/dl (6.1-8.1)
[2017-03-04 05:59] LABS: MAGNESIUM 1.3 mg/dl (1.7-2.5); PHOSPHORUS 5.5 mg/dl (2.5-4.9)
[2017-03-04 07:57] VITALS: BP 189/84; RESP 18
[2017-03-04] MEDS: INSULIN ASPART [NOVOLOG] 3 ML PEN SC SCH ×7 (08:22→20:37)
[2017-03-04] MEDS: METOPROLOL 25 MG TAB PO SCH ×2 (08:24→20:37)
[2017-03-04] MEDS: LOSARTAN 50 MG TAB PO SCH ×2 (08:24→20:36)
[2017-03-04] MEDS: GABAPENTIN 100 MG CAP PO SCH ×3 (08:25→20:36)
[2017-03-04] MEDS: CHLORDIAZEPOXIDE 25 MG CAP PO SCH ×2 (08:25→20:36)
[2017-03-04] MEDS: FOLIC ACID 1 MG TAB PO SCH (08:25)
[2017-03-04] MEDS: LEVOFLOXACIN 750 MG TABLET PO SCH (08:25)
[2017-03-04] MEDS: THIAMINE 100 MG TAB PO SCH (08:25)
[2017-03-04] MEDS: MULTIVITAMINS THERAPEUTIC TAB PO SCH (08:25)
[2017-03-04] MEDS: ACETAMINOPHEN 325 MG TAB PO PRN ×2 (08:25→22:01)
--- NOTE | 2017-03-04 09:51 | PDOCDIS ---
Discharge Instructions CONDITION Patient Condition: Stable HOME CARE INSTRUCTIONS: Special Diet: 1800 laine ACTIVITY: Activity Restrictions: Slowly Increase Activity FOLLOW UP/APPOINTMENTS Follow-up Plan Follow up with PCP within 1 week SNF for PT and medication compliance SHINE LYNNE Mar 04, 2017 09:51
[2017-03-04] MEDS ORDERED: MAGNESIUM SULFATE 4 GM/100 ML 100 ML IVPB ONE (10:30)
--- NOTE | 2017-03-04 11:49 | PN ---
Date/Time of Note Date/Time of Note DATE: 03/04/17 TIME: 11:34 Assessment/Plan VTE Prophylaxis VTE Prophylaxis Intervention: SCD's Lines/Catheters IV Catheter Type (from Nrs): Saline Lock Urinary Cath still in place: No Assessment/Plan Assessment/Plan 71-year-old male: 1. Abdominal pain, atypical chest pain, pleuritic in nature likely rate related to his heavy alcoholism and possibly underlying esophagitis, cardiac enzymes negative 3, CAT scan of the abdomen with dilated pancreatic duct, lipase and amylase wnl and LFTs have normalized now MRCP negative for acute findings. CT angiogram of the chest showing, ? right PNA ? continue Levaquin for 3 more days EKG within normal Tolerating diet, PPI. 2. Diabetes mellitus, uncontrolled, hemoglobin A1c of 9.7 and noncompliance with diet and medications. Diabetic education. Continue Lantus 15 units qhs along with the short acting insulin q. before meals and sliding scale Continue titration of Lantus for blood sugar control, Tradjenta to be added 3. Peripheral neuropathy: Likely related to heavy alcoholism, liver disease, diabetes, minimally symptomatic for now, Gabapentin started. 4. Heavy alcoholism with signs of mild withdrawal, last beer was yesterday, decrease Librium to 25 mg p.o. twice daily, Ativan as needed, on Thiamine/Folate /MVI po daily. Patient has been counseled to stop drinking, since there is a history of homelessness is currently living at either [facility]. 5. Hypertension: Continue Metoprolol 25 mg p.o. twice daily, along with Cozaar and prn hydralazine 6. Hyponatremia, mild likely secondary to hypovolemia, resolved. 7. Hepatic steatosis, likely related to alcoholic liver disease, patient has been again advised to stop drinking. 8. Right sided Pneumonia on CT chest, ? aspiration while intoxicated. Continue Levaquin x 3 more days. Prophylaxis: SCDs to lower extremity for DVT prophylaxis, Protonix for GI prophylaxis Disposition: Discharge to snf facility today if bed available Subjective 24 Hr Interval Summary Free Text/Dictation Patient doing well, MRCP negative for any obstructive disease, abdominal pain likely secondary to alcoholism and alcoholic liver disease. Patient tolerating p.o. well, afebrile. Discharge to snf facility today after IV magnesium given. Librium being titrated down Exam/Review of Systems Vital Signs Vitals Vital Signs Date Time Temp Pulse Resp B/P Pulse Ox O2 Delivery O2 Flow Rate FiO2 03/04/17 07:57 97.6 73 18 189/84 100 Intake and Output 03/03/17 03/03/17 03/04/17 14:59 22:59 06:59 Intake Total 640 ml 460 ml Output Total 700 ml 1250 ml Balance -60 ml -790 ml Exam Constitutional: alert, oriented, well developed Respiratory: clear to auscultation, normal air movement Cardiovascular: nl pulses, regular rate and rhythm Gastrointestinal: non-tender, soft Musculoskeletal: nl extremities to inspection, other (Some unsteadiness improved) Extremities: normal pulses Neurological: EQUINE BREEDER II-XII intact, nl speech, nl strength, other (Improving gait) Results Result Diagram: 03/04/1751403/04/1715 Results 24 hrs Laboratory Tests Test 03/03/17 12:18 03/03/17 17:22 03/03/17 20:11 03/04/17 01:40 Bedside Glucose 268 H 179 183 186 Test 03/04/17 05:15 03/04/17 08:20 White Blood Count 5.4 Red Blood Count 4.02 L Hemoglobin 11.9 L Hematocrit 37.2 L Mean Corpuscular Volume 92.5 Mean Corpuscular Hemoglobin 29.6 Mean Corpuscular Hemoglobin Concent 32.0 Red Cell Distribution Width 15.4 H Platelet Count 280 Mean Platelet Volume 9.0 Neutrophils % 47.9 Lymphocytes % 26.6 Monocytes % 17.2 H Eosinophils % 3.0 Basophils % 0.7 Nucleated Red Blood Cells % 0.0 Neutrophils # 2.6 Lymphocytes # 1.4 Monocytes # 0.9 Eosinophils # 0.2 Basophils # 0.0 Nucleated Red Blood Cells # 0.0 Sodium Level 141 Potassium Level 4.5 Chloride Level 102 Carbon Dioxide Level 27 Anion Gap 17 H Blood Urea Nitrogen 17 Creatinine 1.27 H Glucose Level 198 Calcium Level 9.6 Phosphorus Level 5.5 H Magnesium Level 1.3 L Total Bilirubin 0.0 L Direct Bilirubin 0.00 Indirect Bilirubin 0.0 Aspartate Amino Transf (AST/SGOT) 46 Alanine Aminotransferase (ALT/SGPT) 43 Alkaline Phosphatase 134 H Total Protein 6.8 Albumin 3.7 Globulin 3.10 Albumin/Globulin Ratio 1.19 Bedside Glucose 227 H Medications Medications Current Medications Miscellaneous Information 1 ea NOTE XX ; Start 7/11/17 at 18:00 Glucose (Glutose) 15 gm Q15M PRN PO DECREASED GLUCOSE; Start 02/27/17 at 18:00 Glucose (Glutose) 22.5 gm Q15M PRN PO DECREASED GLUCOSE; Start 02/27/17 at 18: 00 Dextrose (D50w Syringe) 25 ml Q15M PRN IV DECREASED GLUCOSE; Start 02/27/17 at 18:00 Dextrose (D50w Syringe) 50 ml Q15M PRN IV DECREASED GLUCOSE; Start 02/27/17 at 18:00 Glucagon (Glucagen) 1 mg Q15M PRN IM DECREASED GLUCOSE; Start 02/27/17 at 18:00 Glucose (Glutose) 15 gm Q15M PRN BUCCAL DECREASED GLUCOSE; Start 02/27/17 at 18 :00 Diagnostic Test (Pha) (Accu-Chek) 1 ea 02 XX Last administered on 03/02/17 01: 28; Admin Dose 1 EA; Start 02/28/17 at 02:00 Metoprolol Tartrate (Lopressor) 25 mg BID PO Last administered on 03/04/17 08: 24; Admin Dose 25 MG; Start 02/27/17 at 22:30 Acetaminophen (Tylenol Tab) 650 mg Q4H PRN PO PAIN AND OR ELEVATED TEMP Last administered on 03/04/17 08:25; Admin Dose 650 MG; Start 02/27/17 at 22:30 Pantoprazole (Protonix Tab) 40 mg BID@06,18 PO Last administered on 03/04/17 05:04; Admin Dose 40 MG; Start 02/28/17 at 18:00 Levofloxacin (Levaquin) 750 mg DAILY PO Last administered on 03/04/17 08:25; Admin Dose 750 MG; Start 03/01/17 at 11:00 Thiamine HCl (Vitamin B1) 100 mg DAILY PO Last administered on 03/04/17 08:25 ; Admin Dose 100 MG; Start 03/02/17 at 09:00 Folic Acid (Folic Acid) 1 mg DAILY PO Last administered on 03/04/17 08:25; Admin Dose 1 MG; Start 03/02/17 at 09:00 Multivitamins Therapeutic (Theragran) 1 tab DAILY PO Last administered on 08:25; Admin Dose 1 TAB; Start 03/02/17 at 09:00 Lorazepam (Ativan) 1 mg Q6H PRN IV AGITATION/ANXIETY; Start 03/01/17 at 13:00 Losartan Potassium (Cozaar) 50 mg BID PO Last administered on 03/04/17 08:24; Admin Dose 50 MG; Start 03/01/17 at 12:00 Hydralazine HCl (Apresoline) 10 mg Q8H PRN IV ELEVATED BLOOD PRESSURE; Start at 12:00 Insulin Glargine (Lantus) 15 unit DAILY@20 SC Last administered on 03/03/17 20 :14; Admin Dose 15 UNIT; Start 03/02/17 at 20:00 Gabapentin 100 mg 100 mg TID PO Last administered on 03/04/17 08:25; Admin Dose 100 MG; Start 03/03/17 at 13:00 Magnesium Sulfate (Magnesium Sulfate 4 Gm/100 ml) 100 ml @ 25 mls/hr ONCE ONCE IVPB ; Start 03/04/17 at 10:30; Stop 03/04/17 at 14:29 Chlordiazepoxide (Librium) 25 mg BID PO ; Start 03/04/17 at 21:00 SHINE LYNNE Mar 04, 2017 11:44
[2017-03-04] MEDS: LINAGLIPTIN 5 MG TABLET PO SCH (12:45)
[2017-03-04 14:12] VITALS: BP 108/64; RESP 17
[2017-03-04] MEDS: INSULIN GLARGINE [LANtus] 3 ML PEN SC SCH (20:36)
[2017-03-04 20:57] VITALS: BP 145/81; RESP 18
[2017-03-04 22:00] VITALS: BP 101/87; PULSE 84
[2017-03-05] MEDS: ACCU-CHEK XX SCH (02:00)
[2017-03-05 03:36] VITALS: BP 93/58; RESP 18
[2017-03-05] MEDS: PANTOPRAZOLE (EC) 40 MG TAB PO SCH ×2 (05:19→17:28)
[2017-03-05] MEDS: INSULIN ASPART [NOVOLOG] 3 ML PEN SC SCH ×7 (07:55→20:24)
[2017-03-05] MEDS: LINAGLIPTIN 5 MG TABLET PO SCH (08:06)
[2017-03-05] MEDS: METOPROLOL 25 MG TAB PO SCH ×2 (08:07→20:23)
[2017-03-05] MEDS: MULTIVITAMINS THERAPEUTIC TAB PO SCH (08:07)
[2017-03-05] MEDS: LEVOFLOXACIN 750 MG TABLET PO SCH (08:07)
[2017-03-05] MEDS: FOLIC ACID 1 MG TAB PO SCH (08:07)
[2017-03-05] MEDS: THIAMINE 100 MG TAB PO SCH (08:07)
[2017-03-05] MEDS: GABAPENTIN 100 MG CAP PO SCH ×3 (08:07→20:22)
[2017-03-05] MEDS: LOSARTAN 50 MG TAB PO SCH (08:07)
[2017-03-05] MEDS: CHLORDIAZEPOXIDE 25 MG CAP PO SCH (08:07)
[2017-03-05] MEDS: ACETAMINOPHEN 325 MG TAB PO PRN ×2 (08:12→20:22)
[2017-03-05 08:13] VITALS: BP 124/56; RESP 18
[2017-03-05 10:46] LABS: CALCIUM 9.1 mg/dl (8.4-10.2); CREATININE 1.42 mg/dl (0.61-1.24); MAGNESIUM 1.7 mg/dl (1.7-2.5); PHOSPHORUS 5.6 mg/dl (2.5-4.9); POTASSIUM 3.9 mmol/L (3.5-5.1)
--- NOTE | 2017-03-05 10:52 | PN ---
Date/Time of Note Date/Time of Note DATE: 03/05/17 TIME: 10:44 Assessment/Plan VTE Prophylaxis VTE Prophylaxis Intervention: SCD's Lines/Catheters IV Catheter Type (from Nrs): Saline Lock Urinary Cath still in place: No Assessment/Plan Assessment/Plan 71-year-old male: 1. Abdominal pain, atypical chest pain, pleuritic in nature likely rate related to his heavy alcoholism and possibly underlying esophagitis, cardiac enzymes negative 3, CAT scan of the abdomen with dilated pancreatic duct, lipase and amylase wnl and LFTs have normalized now MRCP negative for acute findings. CT angiogram of the chest showing, ? right PNA ? continue Levaquin for 2 more days EKG within normal Tolerating diet, PPI. 2. Diabetes mellitus, uncontrolled, hemoglobin A1c of 9.7 and noncompliance with diet and medications. Blood glucose better controlled Diabetic education. Continue Lantus 15 units qhs along with the short acting insulin q. before meals and sliding scale Continue titration of Lantus for blood sugar control, Tradjenta added 3. Peripheral neuropathy: Likely related to heavy alcoholism, liver disease, diabetes, minimally symptomatic for now, Gabapentin started. 4. Heavy alcoholism with signs of mild withdrawal, last beer was yesterday, decrease Librium to 25 mg p.o. twice daily, Ativan as needed, on Thiamine/Folate /MVI po daily. Patient has been counseled to stop drinking, since there is a history of homelessness is currently living at either [facility]. 5. Hypertension: Continue Metoprolol 25 mg p.o. twice daily, along with Cozaar and prn hydralazine 6. Hyponatremia, mild likely secondary to hypovolemia, resolved. 7. Hepatic steatosis, likely related to alcoholic liver disease, patient has been again advised to stop drinking. 8. Right sided Pneumonia on CT chest, ? aspiration while intoxicated. Continue Levaquin x 2 more days. Prophylaxis: SCDs to lower extremity for DVT prophylaxis, Protonix for GI prophylaxis Dis[facility]: [facility] Subjective 24 Hr Interval Summary Free Text/Dictation Patient is doing well this morning, he remains stable, he still waiting for penitentiary facility placement He denies any abdominal pain is tolerating p.o. well. Blood sugars are well controlled. A.m. labs pending for possible electrolyte repletion Exam/Review of Systems Vital Signs Vitals Vital Signs Date Time Temp Pulse Resp B/P Pulse Ox O2 Delivery O2 Flow Rate FiO2 03/05/17 08:13 98.0 79 18 124/56 98 Intake and Output 03/04/17 03/04/17 03/05/17 15:00 23:00 07:00 Intake Total 1200 ml 600 ml Output Total 2050 ml Balance 1200 ml -1450 ml Exam Constitutional: alert, oriented, well developed Respiratory: clear to auscultation, normal air movement Cardiovascular: nl pulses, regular rate and rhythm Gastrointestinal: non-tender, soft Musculoskeletal: nl extremities to inspection Extremities: normal pulses Neurological: INPATIENT CODER II-XII intact, nl mental status, nl speech, other (Better balance, improving strength) Results Result Diagram: 03/04/1751403/04/17514 Results 24 hrs Laboratory Tests Test 03/04/17 12:24 03/04/17 17:36 03/04/17 20:34 03/05/17 07:50 Bedside Glucose 209 129 136 166 Medications Medications Current Medications Miscellaneous Information 1 ea NOTE XX ; Start 02/27/17 at 18:00 Glucose (Glutose) 15 gm Q15M PRN PO DECREASED GLUCOSE; Start 02/27/17 at 18:00 Glucose (Glutose) 22.5 gm Q15M PRN PO DECREASED GLUCOSE; Start 02/27/17 at 18: 00 Dextrose (D50w Syringe) 25 ml Q15M PRN IV DECREASED GLUCOSE; Start 02/27/17 at 18:00 Dextrose (D50w Syringe) 50 ml Q15M PRN IV DECREASED GLUCOSE; Start 02/27/17 at 18:00 Glucagon (Glucagen) 1 mg Q15M PRN IM DECREASED GLUCOSE; Start 02/27/17 at 18:00 Glucose (Glutose) 15 gm Q15M PRN BUCCAL DECREASED GLUCOSE; Start 02/27/17 at 18 :00 Diagnostic Test (Pha) (Accu-Chek) 1 ea 02 XX Last administered on 03/02/17 01: 28; Admin Dose 1 EA; Start 02/28/17 at 02:00 Metoprolol Tartrate (Lopressor) 25 mg BID PO Last administered on 03/05/17 08: 07; Admin Dose 25 MG; Start 02/27/17 at 22:30 Acetaminophen (Tylenol Tab) 650 mg Q4H PRN PO PAIN AND OR ELEVATED TEMP Last administered on 03/05/17 08:12; Admin Dose 650 MG; Start 02/27/17 at 22:30 Pantoprazole (Protonix Tab) 40 mg BID@06,18 PO Last administered on 03/05/17 05:19; Admin Dose 40 MG; Start 02/28/17 at 18:00 Levofloxacin (Levaquin) 750 mg DAILY PO Last administered on 03/05/17 08:07; Admin Dose 750 MG; Start 03/01/17 at 11:00 Thiamine HCl (Vitamin B1) 100 mg DAILY PO Last administered on 03/05/17 08:07 ; Admin Dose 100 MG; Start 03/02/17 at 09:00 Folic Acid (Folic Acid) 1 mg DAILY PO Last administered on 03/05/17 08:07; Admin Dose 1 MG; Start 03/02/17 at 09:00 Multivitamins Therapeutic (Theragran) 1 tab DAILY PO Last administered on 08:07; Admin Dose 1 TAB; Start 03/02/17 at 09:00 Lorazepam (Ativan) 1 mg Q6H PRN IV AGITATION/ANXIETY; Start 03/01/17 at 13:00 Losartan Potassium (Cozaar) 50 mg BID PO Last administered on 03/05/17 08:07; Admin Dose 50 MG; Start 03/01/17 at 12:00 Hydralazine HCl (Apresoline) 10 mg Q8H PRN IV ELEVATED BLOOD PRESSURE; Start at 12:00 Insulin Glargine (Lantus) 15 unit DAILY@20 SC Last administered on 03/04/17 20 :36; Admin Dose 15 UNIT; Start 03/02/17 at 20:00 Gabapentin (Neurontin) 100 mg TID PO Last administered on 03/05/17 08:07; Admin Dose 100 MG; Start 03/03/17 at 13:00 Chlordiazepoxide (Librium) 25 mg BID PO Last administered on 03/05/17 08:07; Admin Dose 25 MG; Start 03/04/17 at 21:00 Linagliptin (Tradjenta) 5 mg DAILY PO Last administered on 03/05/17 08:06; Admin Dose 5 MG; Start 03/04/17 at 12:00 SHINE LYNNE 17, 2017 10:52
[2017-03-05 15:00] VITALS: BP 111/61; RESP 16
[2017-03-05] MEDS: INSULIN GLARGINE [LANtus] 3 ML PEN SC SCH (20:31)
[2017-03-05] MEDS ORDERED: CHLORDIAZEPOXIDE 25 MG CAP PO SCH (21:00)
[2017-03-05] MEDS ORDERED: LOSARTAN 50 MG TAB PO SCH (21:00)
--- NOTE | 2017-03-30 07:22 | DS ---
DATE OF ADMISSION: 02/27/2017 DATE OF DISCHARGE: 03/05/2017 ADMITTING PHYSICIAN: Portia Roach MD DISCHARGING PHYSICIAN: Portia Roach MD CHIEF COMPLAINT ON ADMISSION: Abdominal pain and chest pain. HISTORY OF PRESENT ILLNESS: This is a 71-year-old male with history of insulin-requiring diabetes mellitus, heavy alcohol use, peripheral neuropathy, and hypertension, noncompliant with medications. Still with heavy alcoholism and seems to be more or less homeless, presented the emergency department with reported symptoms for 10 days of abdominal pain and atypical chest pain. The patient was admitted to a telemetry bed at [email or web address] due to the reported chest pain. HOSPITAL COURSE: The patient was admitted to telemetry. Upon further questioning, it became evident that he mostly has abdominal pain, epigastric pain. He is a heavy alcoholic with hepatic steatosis and possible gastritis. The patient was started on a banana bag and proton pump inhibitors. He was ruled out for his atypical chest pain and maintained on a banana bag afterwards. He was started on Librium as he was showing some signs of alcohol withdrawal. He remained stable and did not go in full withdrawal. He has pain was controlled with proton pump inhibitors. He started physical therapy and was stable. He was informed that he has hepatic steatosis and needed to quit alcohol at this point. He had a CT angiogram as part of admission workup and did show a right pneumonia. Therefore, he was on Levaquin during his stay. The patient was finally discharged to [facility], mainly for physical therapy and future placement on 03/05/2017. DISPOSITION: Discharged to [facility] facility. DISCHARGE CONDITION: Stable. DISCHARGE DIET: Diabetic diet. DISCHARGE ACTIVITY: Progressive ambulation with physical therapy. FOLLOWUP: The patient will need to follow up with his primary care physician at discharge and if interested he should go into detox for alcoholism. FINAL DIAGNOSES: 1. Abdominal pain and atypical chest pain likely secondary to esophagitis/gastritis. 2. Right-sided pneumonia on CAT scan. 3. Diabetes mellitus. 4. Peripheral neuropathy. 5. Heavy alcoholism. 6. Hypertension. 7. Hyponatremia, resolved. 8. Hepatic steatosis, likely secondary to alcoholic liver disease. DISCHARGE MEDICATIONS: 1. Sliding scale insulin. 2. Metoprolol 25 mg p.o. b.i.d. 3. Tylenol 650 mg p.o. q.4 hours p.r.n. pain. 4. Protonix 40 mg p.o. b.i.d. 5. Levaquin 750 mg p.o. daily for 2 more days. 6. Thiamine 100 mg daily. 7. Folic acid 1 mg p.o. daily. 8. Multivitamin 1 tab p.o. daily. 9. Cozaar 50 mg p.o. b.i.d. 10. Lantus 15 units subcutaneously daily at night. 11. Neurontin 100 mg p.o. t.i.d. 12. Tradjenta 5 mg p.o. daily. 13. Librium 25 mg p.o. b.i.d., being tapered. Dictated By: Portia Roach MD /ward/nydia /Document#: [id number]
== END 2017-03-05 20:42 | DRG 391 ==
LOC: E/R 16:04 → MS4 19:43 → OBSVTOIN 19:43 → INTOOBSV 19:43 → PP2 03-02 18:04
PROVIDERS: ADMIT Internal Medicine; ATTEND Internal Medicine
DX: K20.9 Esophagitis, unspecified (principal); J18.9 Pneumonia, unspecified organism; E87.2 Acidosis; E11.42 Type 2 diabetes mellitus with diabetic polyneuropathy; E11.65 Type 2 diabetes mellitus with hyperglycemia; K76.0 Fatty (change of) liver, not elsewhere classified; K70.0 Alcoholic fatty liver; E86.1 Hypovolemia; F10.239 Alcohol dependence with withdrawal, unspecified; E87.1 Hypo-osmolality and hyponatremia; R07.89 Other chest pain; I10 Essential (primary) hypertension; E78.5 Hyperlipidemia, unspecified; R10.31 Right lower quadrant pain; Z79.4 Long term (current) use of insulin; Z91.14 Patient's other noncompliance with medication regimen; Z91.11 Patient's noncompliance with dietary regimen; Z87.891 Personal history of nicotine dependence; K29.70 Gastritis, unspecified, without bleeding
CPT/HCPCS: 71010; 71275; 74176; 74181; 80048; 80053; 80061; 80076; 81001; 82140; 82150; 82962; 83036; 83605; 83690; 83735; 84100; 84484; 85025; 85610; 85730; 87040; 87081; 87086; 93005; 96372; 97116; 97162; 97530; J1815; J3411; J3480; J7030; Q9967